=== PATIENT | male | born 1995 | race Caucasian/White ===

== ENCOUNTER 2021-09-23 13:08 | Emergency (ER) | payer OTHER, SELFPAY ==
[2021-09-23 13:13] VITALS: BP 159/95; PULSE 98; RESP 18; TEMP 36.8; O2SAT 99
--- NOTE | 2021-09-23 13:53 | ED.HEATRA ---
HPI - Head Injury General Chief complaint: Head Injury Stated complaint: concussion after playing hockey Time Seen by Provider: 09/23/21 13:40 Source: patient History of Present Illness HPI Narrative: Patient presents with a headache. He was playing hockey tripped fell and struck the back of his head on concrete reports he went black for a second had diffuse body paresthesias for a brief period of time then recovered. Now he feels a little lightheaded and has a mild headache. He wanted to monitor symptoms at home but a significant other convinced him to come to the ER for evaluation. The event occurred approximately 1 to 2 hours prior to ER evaluation. Denies any focal numbness or weakness denies any changes in vision denies any neck pain. Related Data Home Medications Medication Instructions Recorded Confirmed No Home Medications 09/23/21 09/23/21 Allergies Allergy/AdvReac Type Severity Reaction Status Date / Time No Known Allergies Allergy Verified 09/23/21 13:15 Review of Systems Review of Systems: CONSTITUTIONAL: Denies fever, chills, or sweats. EYES: Denies visual changes, redness, or discharge. ENT: Denies rhinorrhea, congestion, sore throat, or otalgia. CARDIOVASCULAR: Denies chest pain, palpitations, or edema. RESPIRATORY: Denies cough or dyspnea. GASTROINTESTINAL: Denies abdominal pain, nausea, vomiting, or diarrhea. GENITOURINARY: Denies dysuria or hematuria. SKIN: Denies rash or itching. MUSCULOSKELETAL: Denies back pain, joint pain, or myalgia. NEUROLOGIC: Denies numbness, dizziness, or weakness. PSYCHIATRIC: Denies anxiety or depression. All systems reviewed & are unremarkable except as noted in HPI and below PMFSH Past Medical History Medical History (Updated 09/23/21 @ 13:58 by Serge Oseguera MD) Patient denies significant medical history Exam Narrative: GENERAL: Well-appearing, well-nourished, and in no acute distress. HEAD: Normocephalic, abrasion noted to the occiput there is mild surrounding erythema no active bleeding no crepitus EYES: PERRLA and EOMI. ENT: Nares clear, no rhinorrhea or epistaxis. Mucous membranes moist. NECK: Supple. No masses. No JVD EXTREMITIES: Normal range of motion. No edema. SKIN: Warm, dry, no rash. NEURO: Cranial nerves II through XII are intact patient is 5 out of 5 strength in all extremities sensation intact to light touch in all extremities alert and oriented x3. PSYCH: Normal mood and affect. Course Vital Signs Vital signs: Vital Signs Temperature 36.8 C 09/23/21 13:13 Pulse Rate 98 09/23/21 13:13 Respiratory Rate 18 09/23/21 13:13 Blood Pressure 159/95 H 09/23/21 13:13 Pulse Oximetry 99 09/23/21 13:13 Temperature 36.8 C 09/23/21 13:13 Pulse Rate 98 09/23/21 13:13 Respiratory Rate 18 09/23/21 13:13 Blood Pressure 159/95 H 09/23/21 13:13 Pulse Oximetry 99 09/23/21 13:13 MDM - Head Injury MDM Narrative Medical decision making narrative: H&P as above, vss, pt looks clinically well, exam without focal neurological compromise, labs/img considered, symptomatic relief available as needed, on reevaluation pt continues to looks clinically well. Patient offered CT however likely to have low clinical utility patient a score of [address] rule suspect concussion, dns intracranial hemorrhage, fracture, major neurovascular compromise. plan to tx/monitor as op w/ pcm f/u findings/plan discussed with pt, pt agree/comfortable with plan, return precautions given Discharge Plan Discharge Clinical Impression: Abrasion Closed head injury Qualifiers: Encounter type: initial encounter Qualified Code(s): S09.90XA - Unspecified injury of head, initial encounter Patient Disposition: Home, Self-Care Condition: Improved Instructions: Antibiotic Form, Concussion (ED), Post Concussion Syndrome (ED) Additional Instructions: Please return if your symptoms worsen or fail to improve. If you develop a fever, can
== END 2021-09-23 14:13 | disposition home or self-care (01) ==
LOC: ANHED 14:07
PROVIDERS: Emergency Provider Emergency Medicine
DX: S06.9X1A Unspecified intracranial injury with loss of consciousness of 30 minutes or less, initial encounter (principal); W01.0XXA Fall on same level from slipping, tripping and stumbling without subsequent striking against object, initial encounter; Y93.22 Activity, ice hockey
CPT/HCPCS: 99283

== ENCOUNTER 2022-09-14 14:02 | Emergency (ER) | payer OTHER, SELFPAY ==
--- NOTE | 2022-09-14 14:04 | ED.EAR ---
HPI - Ear Problem General Chief complaint: Ear Stated complaint: lt ear pain/clogged Time Seen by Provider: 09/14/22 14:05 Source: patient Mode of arrival: ambulatory Limitations: no limitations History of Present Illness HPI Narrative: Mr. Valadez is a 27-year-old male patient presenting to the clinic today with complaints of left ear discomfort/clogged feeling. He reports his girlfriend tried to clean out his ear yesterday with a Q-tip and now he is having discomfort and ringing in the left ear. Related Data Home Medications Medication Instructions Recorded Confirmed No Home Medications 09/23/21 09/23/21 Allergies Allergy/AdvReac Type Severity Reaction Status Date / Time No Known Allergies Allergy Verified 09/14/22 14:08 Review of Systems Review of Systems: Pertinent positives per HPI. Patient denies any fever, chills, rash, headache, visual changes, dizziness, cough, runny nose, sore throat, shortness of breath, chest pain, palpitations, nausea, vomiting, diarrhea, constipation, abdominal pain, or any urinary issues. [facility] Past Medical History Medical History Patient denies significant medical history Comments At the time of my signature, I reviewed and agree with the nursing past medical, surgical, social, and family history. There is no relevant family history pertinent to the patient complaint. Exam Narrative: General: Well-developed, well nourished, in no apparent distress Head: Normocephalic, atraumatic Eyes: Pupils equally round and reactive to light bilaterally, EOM intact, sclera and conjunctive clear, no discharge, lids normal Ears: Bilateral cerumen impaction, irrigation was performed and ear wax was removed successfully, TMs intact and clear, ear canals clear, no drainage, grossly hearing normal. Nose: Nares patent, no discharge, no inflammation, no sinus tenderness. Mouth: Oropharynx without lesions or masses, good dentition, MMM. Neck: Supple, trachea midline, no enlargement of anterior or posterior cervical nodes, no thyroid masses or goiter palpable. Cardio: Regular rate and rhythm, s1 and s2 normal, no murmur appreciated. Resp: Clear to auscultation bilaterally anteriorly and posteriorly, no rhonchi, rales, wheezing or rubs Course Course Emergency Course: Portions of this record may have been created with voice recognition software. Level of Care: Express Care Visit Vital Signs Vital signs: Vital Signs Temperature 36.3 C L 09/14/22 14:06 Pulse Rate 68 09/14/22 14:06 Respiratory Rate 16 09/14/22 14:06 Blood Pressure 139/89 09/14/22 14:06 Pulse Oximetry 100 09/14/22 14:06 Temperature 36.3 C L 09/14/22 14:08 Pulse Rate 68 09/14/22 14:08 Respiratory Rate 16 09/14/22 14:08 Blood Pressure 139/89 09/14/22 14:08 Pulse Oximetry 100 09/14/22 14:08 Vital signs reviewed Procedures Ear Wax Removal Both Ears: Ear Wax Removal Date: 09/14/22 TM Examination: TM(s) intact, normal appearance Ear Canal Exam: atraumatic Patient Tolerated Procedure: well and no complications Complications: no problems Technique: ear canal irrigated Additional Comments: Verbal consent obtained for ear irrigation. Risk and benefits explained and patient voiced understanding. Ear irrigation performed using an elephant ear and spray water bottle. Mixture of 1/2 peroxide 1/2 water used to irrigate bilateral ear canals. Cerumen impaction cleared and TM visualized without redness. Grossly hearing normal. Patient tolerated procedure well Medical Decision Making MDM Narrative Medical decision making narrative: At the time of visit patient is resting comfortably in the exam table. Patient has bilateral cerumen impaction. Ear irrigation was performed in the clinic today and was successful. Patient tolerated procedure very well. Supportive measures were discussed with
[2022-09-14 14:06] VITALS: BP 139/89; PULSE 68; RESP 16; TEMP 36.3; O2SAT 100
[2022-09-14 14:08] VITALS: BP 139/89; PULSE 68; RESP 16; TEMP 36.3; O2SAT 100
== END 2022-09-14 14:27 | disposition home or self-care (01) ==
PROVIDERS: Emergency Provider Nurse Practitioner Family
DX: H61.23 Impacted cerumen, bilateral (principal)
CPT/HCPCS: 69209; 99212; G0463

== ENCOUNTER 2023-04-17 13:00 | Emergency (ER) | payer OTHER, SELFPAY ==
[2023-04-17 13:10] VITALS: BP 156/97; PULSE 103; RESP 16; TEMP 36.6; O2SAT 100
--- NOTE | 2023-04-17 13:13 | ED.NAVMDI ---
HPI - Nausea/Vomiting/Diarrhea General Chief complaint: Nausea/Vomiting/Diarrhea Stated complaint: Nausea Source: patient and RN notes reviewed Mode of arrival: ambulatory Limitations: no limitations History of Present Illness HPI Narrative: Patient is a 27-year-old male who presents to the [facility] with complaints of epigastric pain. Patient states that his epigastric pain has been present intermittently for the past 2 weeks. States that pain worsens after eating. Patient states that he did have 1 episode of nausea with emesis today due to the epigastric pain after eating. Patient states that today was the only time an episode of emesis. He denies recent fever. Denies diarrhea. Denies chest pain or shortness of breath. Patient states that he has tried Tums at home without relief. He states that he looked into taking an antacid but was told to see a provider before he did this. Related Data Allergies Allergy/AdvReac Type Severity Reaction Status Date / Time No Known Allergies Allergy Verified 04/17/23 13:11 Review of Systems Review of Systems: CONSTITUTIONAL: Denies fever, chills, or sweats. EYES: Denies visual changes, redness, or discharge. ENT: Denies otalgia and sore throat CARDIOVASCULAR: Denies chest pain, palpitations, or edema. RESPIRATORY: Denies cough or dyspnea. GASTROINTESTINAL: Reports epigastric pain, nausea, vomiting. Denies diarrhea. GENITOURINARY: Denies dysuria or hematuria. SKIN: Denies rash or itching. MUSCULOSKELETAL: Denies back pain, joint pain, or myalgia. NEUROLOGIC: Denies headache, numbness, or weakness. Pertinent positives per HPI. [facility] Past Medical History Medical History Patient denies significant medical history Comments At the time of my signature, I reviewed and agree with the nursing past medical, surgical, social, and family history. There is no relevant family history pertinent to the patient complaint. Exam Narrative: GENERAL: This is a well-nourished, well-developed patient, in no apparent distress. HEAD: normocephalic, atraumatic. EYES: Sclera clear/white. Vision is grossly intact. EARS: External ears normal. Hearing grossly intact. NOSE: External nose normal with no obvious nasal discharge, nares without redness, no rhinorrhea. THROAT: Mucous membranes moist, posterior pharynx clear. NECK: Neck supple, non-tender without lymphadenopathy, masses or thyromegaly. CARDIOVASCULAR: Regular rate and rhythm without murmurs, gallops, or rubs. RESPIRATORY: Clear to auscultation. Breath sounds equal bilaterally. No wheezes, rales, or rhonchi. GASTROINTESTINAL: Abdomen soft, non-tender, nondistended. Bowel sounds are active. No hepato-splenomegaly, or palpable masses. No guarding. SKIN: warm, intact with no suspicious lesions or rash, good texture and turgor. NEURO: awake, alert, and oriented to person, place and time. There were no obvious focal neurologic abnormalities. Course Course Level of Care: Express Care Visit Vital Signs Vital signs: Vital Signs Temperature 98 F 04/17/23 13:10 Pulse Rate 103 H 04/17/23 13:10 Respiratory Rate 16 04/17/23 13:10 Blood Pressure 156/97 H 04/17/23 13:10 Pulse Oximetry 100 04/17/23 13:10 Temperature 98 F 04/17/23 13:10 Pulse Rate 103 H 04/17/23 13:10 Respiratory Rate 16 04/17/23 13:10 Blood Pressure 156/97 H 04/17/23 13:10 Pulse Oximetry 100 04/17/23 13:10 Reviewed MDM - Nausea/Vomiting/Diarrhea MDM Narrative Medical decision making narrative: Take medication as prescribed. Follow-up with primary care physician. If pain persists, you may benefit from follow-up with GI specialist. Differential Diagnosis Differential diagnosis: Likely food poisoning, gastroenteritis and other (acid reflux, indigestion, GERD) Critical Care Time Critical Care Time Critical Care Time: No Discharge Plan Discharge Clinical Impression: GERD ([place]
== END 2023-04-17 13:23 | disposition home or self-care (01) ==
PROVIDERS: Emergency Provider Nurse Practitioner
DX: K21.9 Gastro-esophageal reflux disease without esophagitis (principal)
CPT/HCPCS: 99213; G0463

== ENCOUNTER 2023-06-11 15:02 | Emergency (ER) | payer OTHER, SELFPAY ==
[2023-06-11 15:08] VITALS: BP 156/91; PULSE 79; RESP 16; TEMP 37.1; O2SAT 100
--- NOTE | 2023-06-11 15:20 | ED.EAR ---
HPI - Ear Problem General Chief complaint: Ear Stated complaint: Earache Source: patient Mode of arrival: ambulatory Limitations: no limitations History of Present Illness HPI Narrative: 27-year-old male presented for complaint of bilateral ear pain with ringing worse on the left than right, decreased hearing on the right. Also with sinus congestion and pressure, headache, sore throat. Denies shortness of breath, wheezing, nausea, vomiting, diarrhea, fevers or chills. He used [id number] ear drops without relief. MD Complaint: ear pain Related Data Allergies Allergy/AdvReac Type Severity Reaction Status Date / Time No Known Allergies Allergy Verified 06/11/23 15:12 Review of Systems Review of Systems: CONSTITUTIONAL: Denies malaise, chills, or fever. EYES: Denies visual changes, redness, or discharge. ENT: reports rhinorrhea, congestion, sinus pain, sore throat, ear pain CARDIOVASCULAR: Denies chest pain, palpitations, or edema. RESPIRATORY: Denies cough or dyspnea. GASTROINTESTINAL: Denies abdominal pain, nausea, vomiting, diarrhea SKIN: Denies rash or itching. MUSCULOSKELETAL: Denies myalgia. NEUROLOGIC: Denies headache. All systems reviewed & are unremarkable except as noted in HPI and below PMFSH Past Medical History Medical History Patient denies significant medical history Comments At time of signature, agree with nursing past medical, surgical, social and family history. There is no relevant family history pertinent to the presenting complaint Exam Narrative: GENERAL: Well-appearing EYES: conjunctivae clear ENT: Nares clear. Mucous membranes moist. TMs erythematous with dull light reflex bilaterally; excess cerumen in bilateral canals. no tragal tenderness. Oropharynx erythematous without lesions. Tonsils enlarged 2+ and without exudate, no drooling, no hoarseness, no trismus, uvula midline. NECK: Supple. No lymphadenopathy CHEST: Clear to auscultation, breath sounds equal. No wheezing, rhonchi, rales, or stridor. No respiratory distress, speaks in full sentences. HEART: Regular rate and rhythm. No murmur heard. SKIN: Warm, dry, no rash. NEURO: Alert and oriented x3. PSYCH: Normal mood and affect Course Course Emergency Course: Patient is aware of diagnosis, understands and agrees to treatment plan. Anticipatory guidance given. Patient agrees to follow-up as directed and is aware of reasons to seek care at the emergency department. Portions of this record may have been created with voice recognition software Level of Care: Express Care Visit Vital Signs Vital signs: Vital Signs Temperature 98.8 F 06/11/23 15:08 Pulse Rate 79 06/11/23 15:08 Respiratory Rate 16 06/11/23 15:08 Blood Pressure 156/91 H 06/11/23 15:08 Pulse Oximetry 100 06/11/23 15:08 Temperature 98.8 F 06/11/23 15:08 Pulse Rate 79 06/11/23 15:08 Respiratory Rate 16 06/11/23 15:08 Blood Pressure 156/91 H 06/11/23 15:08 Pulse Oximetry 100 06/11/23 15:08 Oxygen Delivery Room Air 06/11/23 15:09 Reviewed Medical Decision Making MDM Narrative Medical decision making narrative: Negative strep, results reviewed with patient. Will send antibiotic to cover URI. advised supportive measures and signs/symptoms to go to the ER. Patient is appropriate for outpatient treatment and follow-up. Differential Diagnosis Differential Diagnosis: Coronavirus, strep pharyngitis, allergic rhinitis, upper respiratory tract infection, sinusitis, rhinosinusitis, nasopharyngitis, viral pharyngitis, otitis media, otitis externa, eustachian tube dysfunction, foreign body, cerumen impaction. Vital Signs Vital Signs: Vital Signs Temperature 98.8 F 06/11/23 15:08 Pulse Rate 79 06/11/23 15:08 Respiratory Rate 16 06/11/23 15:08 Blood Pressure 156/91 H 06/11/23 15:08 Pulse Oximetry 100 06/11/23 15:08 Temperature 98.8 F 06/11/23
== END 2023-06-11 15:30 | disposition home or self-care (01) ==
PROVIDERS: Emergency Provider Nurse Practitioner Family
DX: J06.9 Acute upper respiratory infection, unspecified (principal)
CPT/HCPCS: 87081; 87880; 99213; G0463

== ENCOUNTER 2024-02-08 13:35 | Emergency (ER) | payer OTHER, SELFPAY ==
[2024-02-08] VITALS (11 sets, daily range): BP systolic 122–149; BP diastolic 74–102; PULSE 71–99; RESP 15–20; TEMP 36.6; O2SAT 96–99
--- NOTE | ~2024-02-08 | XR_ITS ---
EXAMINATION: XR chest 2V Exam Date/Time: 02/08/2024 14:10 CDT HISTORY: cp FRONTAL WALL WITH SOB Comparison: None. RESULT: Lines, tubes, and devices: None. Lungs and pleura: Clear. Cardiomediastinal silhouette: Normal. Other: No acute osseous or upper abdominal finding. IMPRESSION: No acute cardiopulmonary process. Reviewed, dictated and finalized at location K.
--- NOTE | 2024-02-08 13:41 | ECG_ITS ---
Test Date: 2024-02-08 13:41:05 Measurements Intervals [place] Rate: 98 P: 63 OK: 153 QRS: 17 QRSD: 89 T: 39 QT: 326 QTc: 416 Interpretive Statements SINUS RHYTHM NORMAL ELECTROCARDIOGRAM No previous ECG available for comparison Electronically Signed On 02-10-2024 07:10:25 CDT by Alon Garcia M.D.
--- NOTE | 2024-02-08 14:08 | ED.CHESTPAIN ---
HPI - Chest Pain General Chief Complaint: Chest Pain Stated Complaint: chest pressure-SOB Time Seen by Provider: 02/08/24 14:08 Focused HPI: This is a 28-year-old male that presents to the emergency department for substernal chest pain. Ongoing over the last week. Reports shortness of breath with exertion. Denies fever, cough, lower extremity edema. GENERAL: Well-appearing, well-nourished, and in no acute distress. HEAD: Normocephalic, atraumatic. CHEST: Clear to auscultation. ?No respiratory distress. HEART: Regular rate and rhythm.? NEURO: ?Alert and oriented x3. Patient screened in triage and initial orders placed.? ?Additional care and disposition to be based upon?diagnostic testing and treatment. Related Data Allergies Allergy/AdvReac Type Severity Reaction Status Date / Time nut - unspecified Allergy Swelling Verified 02/08/24 14:03 of Lip/Tongue/Throat Review of Systems Review of Systems: CONSTITUTIONAL: Denies fever CARDIOVASCULAR: Reports chest pain. Denies palpitations, or edema. RESPIRATORY: Reports dyspnea. Denies cough All systems reviewed & are unremarkable except as noted in HPI and below PMFSH Past Medical History Medical History Patient denies significant medical history Social History Social History (Updated 02/08/24 @ 14:43 by Charmaine Frye PA-C) Smoking status: Current every day smoker Exam Narrative: GENERAL: Well-appearing, well-nourished, and in no acute distress. HEAD: Normocephalic, atraumatic. EYES: EOMI. NECK: Supple. No JVD CHEST: Clear to auscultation. No respiratory distress. No wheezes rales or rhonchi HEART: Regular rate and rhythm. No murmur heard. Normal peripheral pulses. EXTREMITIES: Normal range of motion. No edema. SKIN: Warm, dry, no rash. NEURO: No focal deficits. Alert and oriented x3. PSYCH: Normal mood and affect Course Course Emergency Course: patient updated on workup and agrees with plan of care Vital Signs Vital signs: Vital Signs Temperature 97.8 F 02/08/24 13:58 Pulse Rate 99 02/08/24 13:58 Respiratory Rate 18 02/08/24 13:58 Blood Pressure 149/89 H 02/08/24 13:58 Pulse Oximetry 99 02/08/24 13:58 Oxygen Delivery Room Air 02/08/24 13:58 Temperature 97.8 F 02/08/24 13:58 Pulse Rate 71 02/08/24 17:00 Respiratory Rate 20 02/08/24 15:50 Blood Pressure 135/102 H 02/08/24 15:50 Pulse Oximetry 99 02/08/24 17:00 Oxygen Delivery Room Air 02/08/24 15:00 MDM - Chest Pain MDM Narrative Medical decision making narrative: Patient presents to the emergency department for substernal chest discomfort. Ongoing over the last week. Reports some associated shortness of breath. He is afebrile and nontoxic appearing. His vitals are stable. CBC metabolic panel without concerning findings. EKG without concerning changes in baseline and 3 hour troponin are negative. Patient reports relief with Toradol. His heart score is 1. D-dimer is not elevated. Chest x-ray without acute cardiopulmonary abnormality. patient updated on workup and agrees with plan of care. Instructed follow-up with primary provider for further care. He was given warnings to return to the ER Differential Diagnosis Differential diagnosis: Likely stable angina, atypical chest pain, costochondritis and other (pneumonia, PE, GERD) Lab Data Attestation: I reviewed the patient's lab results. 02/08/24 14:23 02/08/24 14:23 Labs: Lab Results 02/08/24 02/08/24 02/08/24 Range/Units 14:23 14:23 16:58 WBC 10.2 H (4.5-10.0) K/mm3 RBC 5.27 (4.6-6.20) M/mm3 Hgb 16.1 (14.0-18.0) g/dL Hct 46.8 (42.0-52.0) % MCV 88.8 (80-100) fl MCH 30.6 (26-34) pg MCHC 34.4 (32-36) g/dl RDW 12.9 (11.5-14.5) % Plt Count 342 (150-375) k/mm3 MPV 9.5 (7.4-10.4) fl Immature Gran % (Auto) 0.3 (0-0.5) % Neut % (Auto)
[2024-02-08 14:29] LABS: Basophils Absolute Auto 0.1 K/mm3 (0.0-0.1); Basophils Percent Auto 0.5 % (0.2-1.2); Eosinophils Absolute Auto 0.1 K/mm3 (0-0.3); Eosinophils Percent Auto 1.3 % (0-4.4); Hematocrit 46.8 % (42.0-52.0); Hemoglobin 16.1 g/dL (14.0-18.0); Immature Granulocyte Absolute 0.03 K/mm3 (0.00-0.031); Immature Granulocyte Percent A 0.3 % (0-0.5); Lymphocytes Percent Auto 29.4 % (18.3-44.2); Mean Corpuscular HGB Conc 34.4 g/dl (32-36); Mean Corpuscular Hemoglobin 30.6 pg (26-34); Mean Corpuscular Volume 88.8 fl (80-100); Mean Platelet Volume 9.5 fl (7.4-10.4); Monocytes Absolute Auto 0.5 K/mm3 (0.1-0.6); Monocytes Percent Auto 5.2 % (2.6-8.5); Neutrophils Absolute Auto 6.5 K/mm3 (1.3-6.7); Neutrophils Percent Auto 63.3 % (45.5-73.1); Platelet Count Result 342 k/mm3 (150-375); Red Blood Count 5.27 M/mm3 (4.6-6.20); Red Cell Distribution Width 12.9 % (11.5-14.5); White Blood Count 10.2 K/mm3 (4.5-10.0)
[2024-02-08 14:40] LABS: Alanine Aminotransferase 52 U/L (6-50); Albumin Level 5.2 g/dL (3.5-5.1); Alkaline Phosphatase 122 U/L (38-126); Anion Gap 16 mmol/L (4-12); Aspartate Amino Transferase 41 U/L (17-59); Bilirubin,Total 1.1 mg/dL (0.2-1.3); Blood Urea Nitrogen 14 mg/dL (9-20); Calcium 10.1 mg/dL (8.4-10.2); Carbon Dioxide 22 mmol/L (22-30); Chloride 102 mmol/L (98-107); Estimated CRCL calculation 128 ml/min; Estimated Glomerular Filt Rate > 60; Glucose 95 mg/dL (65-110); Lipase 48 U/L (23-300); Potassium 3.8 mmol/L (3.4-5.0); Prothrombin Time 13.5 Seconds (11.1-14.7); Sodium 140 mmol/L (137-145)
[2024-02-08 14:41] LABS: Partial Thromboplastin Time 23.7 Seconds (22.3-36.8)
[2024-02-08 14:45] LABS: D Dimer < 0.27 ug/mL (<0.48)
[2024-02-08 14:52] LABS: Troponin I < 0.012 ng/mL (0.000-0.034)
[2024-02-08] MEDS: KETOROLAC 15 MG/ML VIAL (*BKC) IV PUSH (15:37)
[2024-02-08] MEDS: SODIUM CHLORIDE 0.9% IV 1,000 ML 999 ML IV CONT (15:37)
[2024-02-08] MEDS: IPRATROPIUM 0.5 MG/ALBUTEROL SULFATE 2.5 MG AMPUL.NEB 3 ML INHALATION (15:43)
[2024-02-08 15:50] LABS: NT Pro B Type Natriuretic Pept 26 pg/mL (19.9-100)
--- NOTE | 2024-02-08 16:19 | PC.NURSE ---
NO cardiac leads in the room. oil heat technician made aware of no leads.
[2024-02-08 17:32] LABS: Troponin I < 0.012 ng/mL (0.000-0.034)
== END 2024-02-08 18:22 | disposition home or self-care (01) ==
PROVIDERS: Emergency Medicine; Emergency Provider Physician Assistant; PCP Internal Medicine
DX: R07.9 Chest pain, unspecified (principal); F17.200 Nicotine dependence, unspecified, uncomplicated
CPT/HCPCS: 36415; 71046; 80053; 83690; 83880; 84484; 85025; 85380; 85610; 85730; 93005; 94640; 96361; 96374; 99284; J1885; J7030

== ENCOUNTER 2024-06-11 14:34 | Emergency (ER) | payer OTHER, SELFPAY ==
[2024-06-11 15:44] VITALS: BP 129/79; PULSE 91; RESP 16; TEMP 36.7; O2SAT 100
--- NOTE | 2024-06-11 17:25 | ED.URI ---
HPI - URI/Sore Throat General Chief Complaint: Upper Respiratory Infection Stated Complaint: Sinus Infection Symptoms Time Seen by Provider: 06/11/24 17:25 Source: patient, RN notes reviewed and old records reviewed Mode of arrival: ambulatory Limitations: no limitations History of Present Illness HPI Narrative: 28 year old male presents to [facility] care with complaints of cough and sore throat for 3 days with some fevers and feels weak, body aches, with some headache discomfort. Patient reports that he has been taking DayQuil and NyQuil for his symptoms. Patient reports that his ribs hurt for coughing so much. MD elicited complaint: cough and sore throat Onset (ago): day(s) (3) Severity: moderate Able to tolerate fluids by mouth: Yes Treatments prior to arrival: other (DayQuil and NyQuil) Related Data Allergies Allergy/AdvReac Type Severity Reaction Status Date / Time nut - unspecified Allergy Swelling Verified 02/08/24 14:03 of Lip/Tongue/Throat Review of Systems Review of Systems: CONSTITUTIONAL: Reports malaise, chills, sweats, or fever. EYES: Denies visual changes, redness, or discharge. ENT: Reports rhinorrhea, congestion,no sinus pain,no otalgia and positive sore throat. CARDIOVASCULAR: Denies chest pain, palpitations, or edema.states ribs sore from coughing RESPIRATORY: Reports cough.? Denies dyspnea. GASTROINTESTINAL: Denies abdominal pain, nausea, vomiting, diarrhea SKIN: Denies rash or itching. MUSCULOSKELETAL: reports myalgia. NEUROLOGIC: Reports headache. All systems reviewed & are unremarkable except as noted in HPI and below PMFSH Past Medical History Medical History Patient denies significant medical history Social History Social History Smoking status: Current every day smoker Comments At time of signature, agree with nursing past medical, surgical, social and family history. There is no relevant family history pertinent to the presenting complaint Exam Narrative: GENERAL: Well-appearing, well-nourished, and in no acute distress. HEAD: Normocephalic EYES: PERRLA, conjunctivae clear ENT: Nares clear, turbinates edematous and erythematous, clear discharge. Mucous membranes moist. TM pearly cruz with dull light reflex bilaterally; no tragal tenderness. Oropharynx erythematous without lesions. Tonsils not enlarged and without exudate, no drooling, no hoarseness, no trismus, uvula midline.post nasal drainage NECK: Supple. No lymphadenopathy CHEST: Clear to auscultation, breath sounds equal. No wheezing, rhonchi, rales, or stridor. No respiratory distress, speaks in full sentences.persistent coughing SAO2 100% on room air HEART: Regular rate and rhythm. No murmur heard. SKIN: Warm, dry, no rash. NEURO: Alert and oriented x3. PSYCH: Normal mood and affect Course Course Emergency Course: Patient is aware of diagnosis, understands and agrees to treatment plan.? Anticipatory guidance given.? Patient agrees to follow-up as directed and is aware of reasons to seek care at the emergency department. Portions of this record may have been created with voice recognition software Level of Care: Express Care Visit Vital Signs Vital signs: Vital Signs Temperature 36.7 C 06/11/24 15:44 Pulse Rate 91 06/11/24 15:44 Respiratory Rate 16 06/11/24 15:44 Blood Pressure 129/79 06/11/24 15:44 Pulse Oximetry 100 06/11/24 15:44 Temperature 36.7 C 06/11/24 15:44 Pulse Rate 91 06/11/24 15:44 Respiratory Rate 16 06/11/24 15:44 Blood Pressure 129/79 06/11/24 15:44 Pulse Oximetry 100 06/11/24 15:44 Reviewed MDM - URI/Sore Throat MDM Narrative Medical decision making narrative: Differential diagnosis considered: Xiao virus, strep pharyngitis, allergic rhinitis, upper respiratory tract infection, sinusitis, rhinosinusitis, nasopharyngitis. viral pharyngitis, otitis media, otitis externa, pneumonia, bronchitis, viral cough syndrome, viral syndrome, and influenza.? Exam findings show no acute concerns or changes; patient is non-toxic appearing and is in no distress.? Patient is appropriate for outpatient treatment and follow-up. Differential Diagnosis Differential diagnosis: Likely upper respiratory infection, sinusitis, influenza, pharyngitis and other (strep pharyngitis, COVID) Medical Records Attestation: I reviewed the patient's medical records. Lab Data Attestation: I reviewed the patient's lab results. Lab results narrative: strep screen negative, Influenza A negative, Influenza B negative, COVID antigen positive Labs: Lab Results 06/11/24 Range/Units 15:49 POC Influenza A Ag Negative (Negative) POC Influenza B Ag Negative (Negative) POC SARS CoV-2 Ag Positive (Negative) POC Grp A Strep Screen Negative (Negative) Critical Care Time Critical Care Time Critical Care Time: No Discharge Plan Discharge Clinical Impression: COVID-19 Patient Disposition: Home, Self-Care Condition: Stable Instructions: Antibiotic Form, How to Recover from COVID-19 at Home (ED) Additional Instructions: Increase fluids especially juices and water [id number] cough and cold medicine of your choice for your symptoms Tylenol or ibuprofen for any fever pain Zyrtec Claritin or Magali daily include plain Sudafed in a.m. Steroids as directed--take with food heat to the face 20-30 minutes 4-6 times a day for pain Salt water gargles, throat lozenges or throat sprays as desired must quarantine COVID-19 DISCHARGE The following recommendations have been made by the CDC and local Health Departments, regarding COVID-19: Those individuals with mild cases of COVID-19 can generally be discontinued from isolation, 5 days AFTER the onset of symptoms AND the resolution of fever for 24hrs (without the use of fever-reducing medications) Those individuals who were asymptomatic, and tested positive, are discontinued from isolation 10 days AFTER their first positive COVID-19 test Those individuals with SEVERE to CRITICAL illness or immunocompromised diseases may require up to 20 days of home isolation or hospitalization Majority of mild to moderate cases can be treated at home, without hospitalization or prescription medications You do not need a negative test result to return to work/school, assuming the above recommendations have been met and you are not symptomatic. At this time, return to work/school notes will not be provided. Guidelines from the local Health Department, CDC, and workplace are expected to be followed. All individuals in the household need to remained quarantined for up to 14 days if asymptomatic OR 10 days after the start of symptoms. Everyone in the home DOES NOT require testing, they are presumed positive and should quarantine as directed. Treating symptoms for mild to moderate cases may include: Tylenol, Flonase/nasal spray, OTC cold/flu medications recommended from your provider or any necessary prescription medications provided at your visit or from your PCP IF YOU TESTED NEGATIVE If you are symptomatic with reason to believe you have COVID-19, there is a high possibility your rapid test may not have detected the virus. Rapid testing is dependent on timing and viral load and may have a false-negative reading You should follow appropriate guidelines regarding quarantine, hand washing, mask wearing, and social distancing You may be sent for PCR testing as an outpatient to the [facility] site Common Adult Symptoms: Fever/chills Cough Shortness of breath Fatigue, muscle aches Headache Loss of taste/smell Sore throat, congestion, runny nose GI symptoms (nausea, vomiting, diarrhea) Common Pediatric Symptoms Cough Fever GI symptoms (diarrhea, upset stomach, nausea, vomiting) Symptoms may differ in severity however, most cases do not require hospitalization. WHEN TO SEEK ER EVALUATION/TREATMENT Severe/persistent shortness of breath or difficulty breathing Elevated, persistent fevers without resolution with fever-reducing medications Chest pain Extreme fatigue/lethargy Complications of pre-existing disease Patient Language: French Prescriptions: New prednisone 50 mg tablet 50 mg PO DAILY Qty: 5 0RF Rx Instructions: take in am with food No Action albuterol sulfate 90 mcg/actuation HFA aerosol inhaler 2 puff inhalation QID PRN (Reason: shortness of breath or wheezing) Qty: 8.5 0RF Follow-up/Referrals: Macey,MD Dominga [Primary Care Provider] - Time of Disposition: 17:37 Quality [place] Coma Scale Eyes: Open Verbal: Oriented and Alert Motor: Follows Commands [place] Coma Total Score: 15
[2024-06-11 17:37] LABS: EDCOVIDSCREEN Positive (Negative); EDINFLUASCREEN Negative (Negative); EDINFLUBSCREEN Negative (Negative); EDSTREPNEGPOS1 Negative (Negative)
== END 2024-06-11 17:41 | disposition home or self-care (01) ==
PROVIDERS: Emergency Provider Registered Nurse; PCP Internal Medicine
DX: U07.1 COVID-19 (principal)
CPT/HCPCS: 87081; 87426; 87804; 87880; 99213; G0463

== ENCOUNTER 2024-07-03 17:40 | Emergency (ER) | payer OTHER, SELFPAY ==
--- NOTE | ~2024-07-03 | XR_ITS ---
EXAMINATION: XR chest 2V Exam Date/Time: 07/03/2024 22:06 SECOND OFFICER HISTORY: cough, shortness of breath Comparison: 02/08/2024. RESULT: Lines, tubes, and devices: None. Lungs and pleura: Segmental lingular airspace disease. Cardiomediastinal silhouette: Stable. Other: No acute osseous or upper abdominal finding. IMPRESSION: Lingular pneumonia. Reviewed, dictated and finalized at location K. [place] OFFICER IMPRESSION: Lingular pneumonia.
[2024-07-03 17:44] VITALS: BP 152/77; PULSE 122; RESP 18; TEMP 37.4; O2SAT 95
[2024-07-03 19:11] VITALS: TEMP 36.9
[2024-07-03 20:26] VITALS: TEMP 36.7
[2024-07-03 21:09] LABS: Influenza A QL RT-PCR Negative (Negative); Influenza B QL RT-PCR Negative (Negative); RSV RNA, RT-PCR Negative (Negative); SARS-CoV-2 RNA PCR Negative (Negative)
[2024-07-03 22:18] VITALS: BP 142/77; PULSE 84; RESP 16; O2SAT 99
--- NOTE | 2024-07-03 22:18 | ED.FEVER ---
HPI - Fever General Chief Complaint: Fever Stated Complaint: fever Time Seen by Provider: 07/03/24 20:39 History of Present Illness HPI Narrative: Patient is a 28-year-old male who presents to the ER with complaints of a 3 day fever. He reports his symptoms include exhaustion, green mucus, sweats and chills, sore throat, cough, and T-max of 103.4?. Patient reports he has intermittently been short of breath and experienced some wheezing. His reports he has been ?out of it for the past couple days. Patient endorses a history of chest pain that he was evaluated here for in January, otherwise he has no pertinent medical history. Patient denies chest pain, abdominal pain, back pain, urinary symptoms. Related Data Allergies Allergy/AdvReac Type Severity Reaction Status Date / Time nut - unspecified Allergy Swelling Verified 02/08/24 14:03 of Lip/Tongue/Throat Review of Systems Review of Systems: All systems reviewed & are unremarkable except as noted in HPI and below PMFSH Past Medical History Medical History Patient denies significant medical history Social History Social History Smoking status: Current every day smoker Exam Narrative: GENERAL: Ill appearing, obese, non-toxic, in no acute distress. HEAD: Normocephalic, atraumatic. NECK: Supple. No adenopathy, no masses. RESPIRATORY: Airway patent, respirations nonlabored. Clear to auscultation bilaterally, no rales, rhonchi, wheezing. + cough during exam CARDIOVASCULAR: Regular rate and rhythm without murmurs, rubs, or gallops. Peripheral pulses 2+ and equal bilaterally. ABDOMINAL: Soft, nontender, nondistended, no hepatosplenomegaly. Normoactive BS. MUSCULOSKELETAL: Moves all extremities. Strength/ROM intact without gross deformities. SKIN: Warm, dry, normal color. No rashes. NEURO: A&O X3. Speech clear. Cranial nerves II-XII grossly intact. Steady gait. No ataxic movements. PSYCHIATRIC: Appropriate mood and affect. Normal interaction. Course Vital Signs Vital signs: Vital Signs Temperature 37.4 C 07/03/24 17:44 Pulse Rate 122 H 07/03/24 17:44 Respiratory Rate 18 07/03/24 17:44 Blood Pressure 152/77 H 07/03/24 17:44 Pulse Oximetry 95 07/03/24 17:44 Temperature 36.7 C 07/03/24 20:26 Pulse Rate 84 07/03/24 22:18 Respiratory Rate 16 07/03/24 23:32 Blood Pressure 142/77 H 07/03/24 22:18 Pulse Oximetry 99 07/03/24 22:18 MDM - Fever MDM Narrative Medical decision making narrative: Patient is a 28-year-old male who presents to the ER with complaints of a 3 day fever. He reports his symptoms include exhaustion, green mucus, sweats and chills, sore throat, cough, and T-max of 103.4?. Patient reports he has intermittently been short of breath and experienced some wheezing. His reports he has been ?out of it for the past couple days. Patient endorses a history of chest pain that he was evaluated here for in January, otherwise he has no pertinent medical history. Patient denies chest pain, abdominal pain, back pain, urinary symptoms. Labs Ordered: CBC, CMP, UA, COVID/flu/RSV swab Imaging Ordered: Chest x-ray Results: Patient's chest x-ray was suspicious for pneumonia in the left lower lobe. Patient's CBC indicated white blood cell count of 11.1. His CMP indicated a sodium of 136. Patient's urinalysis indicated protein 1+, trace ketones, 1+ bilirubin. Patient's COVID/influenza/RSV swab was negative. Diagnosis: Community acquired pneumonia Patient Education/Shared MDM: Results shared with patient. Patient will be given his 1st dose of oral antibiotics here in the ER. He will be discharged with an inhaler, antibiotics, Tessalon Perles, steroid. Patient and his verbalized understanding and are in agreement with plan. Vital signs stable at time of discharge. All questions answered. Differential Diagnosis Differential diagnosis: Likely fever of unknown origin, community acquired pneumonia, viral infection and influenza Lab Data Attestation: I reviewed the patient's lab results. 07/03/24 22:35 07/03/24 22:35 Labs: Lab Results 07/03/24 07/03/24 Range/Units 20:24 22:35 WBC 11.1 H (4.5-10.0) K/mm3 RBC 5.18 (4.6-6.20) M/mm3 Hgb 15.4 (14.0-18.0) g/dL Hct 45.9 (42.0-52.0) % MCV 88.6 (80-100) fl MCH 29.7 (26-34) pg MCHC 33.6 (32-36) g/dl RDW 13.2 (11.5-14.5) % Plt Count 279 (150-375) k/mm3 MPV 9.1 (7.4-10.4) fl Immature Gran % (Auto) 0.2 (0-0.5) % Neut % (Auto) 62.8 (45.5-73.1) % Lymph % (Auto) 28.0 (18.3-44.2) % [place] % (Auto) 8.2 (2.6-8.5) % Eos % (Auto) 0.3 (0-4.4) % Baso % (Auto) 0.5 (0.2-1.2) % Lymph # (Auto) 3.10 (0.9-3.2) K/mm3 [place] # (Auto) 0.9 H (0.1-0.6) K/mm3 Eos # (Auto) 0.0 (0-0.3) K/mm3 Baso # (Auto) 0.1 (0.0-0.1) K/mm3 Abs Immat Gran (auto) 0.02 (0.00-0.031) K/mm3 Absolute Neuts (auto) 7.0 H (1.3-6.7) K/mm3 Absolute Nucleated RBC 0.000 (0.0-0.012) K/mm3 Nucleated RBC % 0.0 (0.0-0.2) % Sodium 136 L (137-145) mmol/L Potassium 3.8 (3.4-5.0) mmol/L Chloride 100 (98-107) mmol/L Carbon Dioxide 27 (22-30) mmol/L Anion Gap 9 (4-12) mmol/L BUN 14 (9-20) mg/dL Creatinine 1.05 (0.7-1.3) mg/dL Estim Creat Clear Calc 134 ml/min Estimated GFR > 60 (59 - ) Glucose 100 (65-110) mg/dL Calcium 8.9 (8.4-10.2) mg/dL Total Bilirubin 1.3 (0.2-1.3) mg/dL AST 32 (17-59) U/L ALT 45 (6-50) U/L Alkaline Phosphatase 110 (38-126) U/L Total Protein 8.0 (6.3-8.2) g/dL Albumin 4.3 (3.5-5.1) g/dL Urine Color Dark yellow (Yellow) Urine Appearance Clear (Clear) Urine pH 5.5 (5.0-9.0) Ur Specific [place] 1.033 (1.001-1.035) Urine Protein 1+ H (Negative) mg/dL Urine Glucose (UA) Negative (Negative) mg/dL Urine Ketones Trace H (Negative) mg/dL Ur Blood (Man) Negative (Negative) Urine Nitrate Negative (Negative) Urine Bilirubin 1+ H (Negative) Urine Urobilinogen 1.0 (<2.0) mg/dL Add Ur Microanalysis Reviewed Leukocyte Esterase Rfl Negative (Negative) TERESA/UL Urine RBC 0-2 (0-2) /hpf Urine WBC 0-5 (0-3) /hpf Ur Squamous Epith Cells Few (Few) /hpf Urine Bacteria None seen /hpf Urine Casts 3-5 Urine Mucus Present /lpf Influenza A (RT-PCR) Negative (Negative) Influenza B (RT-PCR) Negative (Negative) RSV (RT-PCR) Negative (Negative) SARS-CoV-2 RNA (RT-PCR) Negative (Negative) Imaging Data Attestation: I personally reviewed and interpreted this imaging study as follows: My impression: Chest x-ray suspicious for pneumonia in left lower lobe. ECG Data EKG #1: Attestation: I personally reviewed and interpreted this ECG as follows: ECG completion date: 07/04/24 ECG completion time: 23:50 Prior ECG tracings: available for review EKG Interpretation: normal rate, sinus rhythm and no ectopy Discharge Plan Discharge Clinical Impression: Community acquired pneumonia Patient Disposition: Home, Self-Care Condition: Stable Instructions: Antibiotic Form, Bacterial Pneumonia (ED) Additional Instructions: Please return to the ER with an worsening symptoms. Follow-up with primary care provider in the next 2-3 days. Take all medications as prescribed. Patient Language: Latvian Prescriptions: New amoxicillin-pot clavulanate 875-125 mg tablet 1 tablet PO Q12H Qty: 20 0RF prednisone 20 mg tablet 20 mg PO BID Qty: 10 0RF doxycycline monohydrate 100 mg tablet 100 mg PO BID Qty: 14 0RF albuterol sulfate [Ventolin HFA] 90 mcg/actuation HFA aerosol inhaler 1 puff inhalation QID PRN (Reason: shortness of breath or wheezing) Qty: 8.5 0RF No Action prednisone 50 mg tablet 50 mg PO DAILY Qty: 5 0RF Rx Instructions: take in am with food albuterol sulfate 90 mcg/actuation HFA aerosol inhaler 2 puff inhalation QID PRN (Reason: shortness of breath or wheezing) Qty: 8.5 0RF Follow-up/Referrals: Macey,MD Dominga [Primary Care Provider] - Time of Disposition: 00:18
[2024-07-03] MEDS: SODIUM CHLORIDE 0.9% IV 1,000 ML 999 ML IV CONT (22:36)
[2024-07-03 22:44] LABS: Basophils Absolute Auto 0.1 K/mm3 (0.0-0.1); Basophils Percent Auto 0.5 % (0.2-1.2); Eosinophils Percent Auto 0.3 % (0-4.4); Hematocrit 45.9 % (42.0-52.0); Hemoglobin 15.4 g/dL (14.0-18.0); Immature Granulocyte Absolute 0.02 K/mm3 (0.00-0.031); Immature Granulocyte Percent A 0.2 % (0-0.5); Mean Corpuscular HGB Conc 33.6 g/dl (32-36); Mean Corpuscular Hemoglobin 29.7 pg (26-34); Mean Corpuscular Volume 88.6 fl (80-100); Mean Platelet Volume 9.1 fl (7.4-10.4); Monocytes Absolute Auto 0.9 K/mm3 (0.1-0.6); Monocytes Percent Auto 8.2 % (2.6-8.5); Neutrophils Percent Auto 62.8 % (45.5-73.1); Platelet Count Result 279 k/mm3 (150-375); Red Blood Count 5.18 M/mm3 (4.6-6.20); Red Cell Distribution Width 13.2 % (11.5-14.5); White Blood Count 11.1 K/mm3 (4.5-10.0)
[2024-07-03 22:52] LABS: Add Urine Microscopic? YES; Appearance Urine Clear (Clear); Bacteria Urine None Seen /hpf; Bilirubin Urine 1+ (Negative); Blood Urine Negative (Negative); Color Urine Dark Yellow (Yellow); Glucose Urine UA Negative (Negative); Ketones Urine Trace mg/dL (Negative); Leukocyte Esterase Ur Negative LEU/UL (Negative); Mucus Urine Present /lpf; Need Manual Microscopic Reviewed; Nitrate Urine Negative (Negative); Protein Urine 1+ mg/dL (Negative); RBC Urine 0-2 /hpf (0-2); Specific Grav Ur 1.033 (1.001-1.035); Squamous Epithelial Cell Urine Few /hpf (Few); WBC Urine 0-5 /hpf (0-3); pH Urine 5.5 (5.0-9.0)
[2024-07-03 22:54] LABS: Alanine Aminotransferase 45 U/L (6-50); Albumin Level 4.3 g/dL (3.5-5.1); Alkaline Phosphatase 110 U/L (38-126); Anion Gap 9 mmol/L (4-12); Aspartate Amino Transferase 32 U/L (17-59); Bilirubin,Total 1.3 mg/dL (0.2-1.3); Blood Urea Nitrogen 14 mg/dL (9-20); Calcium 8.9 mg/dL (8.4-10.2); Carbon Dioxide 27 mmol/L (22-30); Chloride 100 mmol/L (98-107); Estimated CRCL calculation 134 ml/min; Estimated Glomerular Filt Rate > 60; Glucose 100 mg/dL (65-110); Potassium 3.8 mmol/L (3.4-5.0); Sodium 136 mmol/L (137-145)
--- NOTE | 2024-07-03 23:00 | ECG_ITS ---
Test Date: 2024-07-03 23:50:49 Measurements Intervals [place] Rate: 79 P: 57 AK: 178 QRS: 52 QRSD: 88 T: 39 QT: 347 QTc: 400 Interpretive Statements SINUS RHYTHM Compared to ECG 02/08/2024 13:41:05 No significant changes Electronically Signed On 07-04-2024 10:04:13 OUTSIDE MACHINIST SUPERVISOR by Jay Dean M.D.
[2024-07-03 23:32] VITALS: RESP 16
[2024-07-04] MEDS: AMOXICILLIN/CLAVULANATE K 875-125 MG TAB 1 TABLET PO (00:30)
[2024-07-04] MEDS: DOXYCYCLINE HYCLATE 100 MG TABLET PO (00:30)
[2024-07-04 00:34] VITALS: BP 138/78; PULSE 87; RESP 17; O2SAT 97
--- OUTSIDE RECORDS SUMMARY | 2024-07-08 09:20 | XMS_ITS | Referral Summary ---
Author Organization [facility] Address [address] [place] [address] Care Team Providers Care Roof Panel Hanger Name Role Phone Arthur Franco MD Primary Care Provider [phone] Source Comments [facility],non-[facility] Affiliates and Associated Physician Practices is amultiple site organization consisting of ambulatory clinics and hospital sitesin [place], [place], [place] and [place]. This disclosure is being madepursuant to the Care Everywhere program and may not contain all information available regarding this patient. Last updated 18.[facility] Social History Tobacco Use Types Packs/Day Years Used Date Smoking Tobacco: Never Assessed Sex and Gender Information Value Date Recorded Sex Assigned at Not on file Gender Identity Not on file Sexual Orientation Not on file Plan of Treatment Not on file Care Teams Roof Panel Hanger Relationship Specialty Start Date End Date Arthur Franco MD [address] [place] [address] [facility] - General 05/02/20
--- OUTSIDE RECORDS SUMMARY | 2024-07-08 09:20 | XMS_ITS | Clinical Summary ---
Author Organization [facility] Address [address] [place] [address]. [place], [place] [address] [place] [address] Care Team Providers Care Wreath Machine Operator Name Role Phone Dominga Choudhury MD Primary Care Provider [phone] Allergies Active Allergy Reactions Criticality Noted Date Comments Peanut-Containing Drug Products Nausea and Vomiting 10/23/2023 Throat swelling Medications CPAP DEVICE, DME,Indications :LENNOX (obstructive sleep apnea) Use nightly when sleeping. Send to [facility]. ScheduleSoft Device 4 Active Additional Information Patient not taking.Reported on 07/07/2024 albuterol sulfate HFA 108 (90 Base) MCG/ACT inhaler INHALE 1 PUFF BY MOUTH FOUR TIMES DAILY NEEDED FOR SHORTNESS OF BREATH OR WHEEZING 5 Active doxycycline monohydrate (ADOXA) 100 MG tablet 5 Active predniSONE (DELTASONE) 20 MG tablet 5 Active amoxicillin-cla vulanate (AUGMENTIN) 875-125 MG tablet Take 1 tablet (875 mg total) by mouth every 12 (twelve) hours. 5 Active benzonatate (TESSALON) 200 MG capsuleIndicati ons:Pneumonia of both lungs due to infectious organism, unspecified part of lung Take 1 capsule (200 mg total) by mouth 3 (three) times daily as needed for Cough. 20 capsule 5 025 Active methylPREDNISol one, NAPOLEON, (MEDROL DOSEPAK) 4 MG tabletIndicatio ns:Viral syndrome Take as directed 1 each 4 025 Discontin ued(Alter juan jose therapy) Active Problems Problem Noted Date Diagnosed Date Viral syndrome 01/21/2024 Left groin pain 10/23/2023 Abnormal urine odor 10/23/2023 Encounters Date Type Department Care Team Description 07/07/2024 3:20 PM BRAND STRATEGIST Office Visit [facility] Medical Group Multispecialty Care - [address] [place] [address] Dominga Choudhury MD Physical (Pt has pneumonia ) 07/07/2024 Travel 07/03/2024 Scan [facility] SRV[facility] Scanned, Doc Med Group 06/11/2024 Scan [facility] Scanned, Doc Med Group Lab (SCAN) 06/11/2024 Scan [facility] INFO [facility] Scanned, Doc Med Group Lab (SCAN) from Last 3 Months Immunizations Name Administration Dates Next Due Dtap (Generic) 07/29/2000, 7,03/11/1996,01/01,1995 Fluzone 6 Months+ Quad (0.5 mL Prefilled Syringe) 07/04/2023 Hepatitis A (Generic) 01/16/2009,01/13/2008 Hepatitis B 06/04/1996,1995,1995 Hib (Generic) 12/10/1996, 6,01/02/1996,11/04 Influenza (Generic) 06/28/2012,05/03/2010 MMR (MMRII) 07/29/2000,08/30/1996 Meningococcal (Generic) 01/13/2008 Meningococcal (Menactra) 04/12/2014 PFIZER COVID-19 (ORIGINAL FO RMULATION, PURPLE CAP) mRNA, LNP-S, PF, 30 MCG/0.3 ML DOSE 12/26/2020,12/05/2020 Polio Opv (Generic) 07/29/2000, 7,01/02/1996,11/04 Tdap (Adacel) 07/04/2023 Tdap (Generic) 12/11/2005 Varicella (Varivax) 09/19/2006,08/30/1996 Family History Medical History Relation Comments Hypertension Mother Relation Status Comments Mother Social History Tobacco Use Types Packs/Day Years Used Date Smoking Tobacco: Every Day Cigarettes Passive Smoke Exposure: Never Smokeless Tobacco: Never Tobacco Cessation:Ready to Q uit: No; Counseling Given: Yes Comments:Patient smoked cigarettes from 2011 to 2019 1 PPD on average. Currently vapes. Alcohol Use Standard Drinks/Week Comments Yes 10 (1 standard drink = 0.6 oz pu re alcohol) AUDIT-C Answer Date Recorded Q1: How often do you have a drink containing alc ohol? 2-3 times a week 07/07/2024 Q2: How many drinks containi ng alcohol do you have on a typical day when you are drinking? 1 or 2 07/07/2024 Q3: How often do you have si x or more drinks on one occasion? Weekly 07/07/2024 PHQ-2 Answer Date Recorded Patient Health Questionnaire-2 Score 2 07/04/2023 Sex and Gender Information Value Date Recorded Sex Assigned at Not on file Legal Sex Male 4:46 PM CDT Gender Identity Not on file Sexual Orientation Not on file Last Filed Vital Signs Vital Sign Reading Time Taken Comments Blood Pressure 131/82 07/07/2024 3:13 PM BRAND STRATEGIST Pulse 82 07/07/2024 3:13 PM BRAND STRATEGIST Temperature 36.6 ??C (97.8 ??F) 07/07/2024 3:13 PM CS T Respiratory Rate 18 07/07/2024 3:13 PM BRAND STRATEGIST Oxygen Saturation 99% 07/07/2024 3:13 PM BRAND STRATEGIST Inhaled Oxygen Concentration - - Weight 135.4 kg (298 lb 6.4 oz) 07/07/2024 3:13 PM BRAND STRATEGIST Height 193 cm (6' 4 ) 07/07/2024 3:13 PM BRAND STRATEGIST Body Mass Index 36.32 07/07/2024 3:13 PM BRAND STRATEGIST Plan of Treatment Upcoming Encounters Date Type Department Care Team (Late st Contact Info) Description 07/21/2024 7:00 AM BRAND STRATEGIST Allied Health/Nurse Visit [facility] Medical Group Multispecialty Care - [place] [address] [address] [place] [address] Dominga Choudhury MD [address] [place] [address] Health Maintenance Due Date Last Done Comments Pneumococcal Vaccine: Pediatrics (0 to 5 Years) and At-Risk Patients (6 to 64 Years) (1 of 2 - PCV) 08/30/2001 COVID-19 Vaccine (3 - 2023- season) 2024 12/26/2020, 12/05/2020 Influenza Adult (#1) 2024 07/04/2023, 06/28/2012, 05/03/2010 PHQ-2 (Physician [place]) 07/04/2024 07/04/2023 Annual Physical 07/07/2025 07/07/2024, 07/04/2023 DTaP, Tdap and Td Vaccines (8 - Td or Tdap) 07/04/2033 07/04/2023, 12/11/2005, 07/29/2000, Additional history exists Hepatitis B Vaccines Completed 06/04/1996, 1995, 1995 Meningococcal Vaccine Completed 04/12/2014, 008 Hepatitis C Completed 07/04/2023 HPV Vaccines Aged Out No longer eligi ble based on patient's age to complete this topic Meningococcal B Vaccine Aged Out No l onger eligible based on patient's age to complete this topic RSV Immunizations Under 20 Months Aged Out No longer eligible based on patient's age to complete this topic Procedures Procedure Name Priority Date/Time Associated Diagnosis Comments COLLECTION VENOUS BLOOD VENIPUNCTURE Routine 07/07/2024 3:46 PM BRAND STRATEGIST Annual physical exam General medical exam Drug therapy URINALYSIS AUTO DIP Routine 07/07/2024 Annual physical exam General medical exam Drug therapy OUTSIDE LAB COVID-19 (SCAN ORDER) Routine 06/11/2024 OUTSIDE LAB (SCAN ORDER) 06/11/2024 OUTSIDE LAB (SCAN ORDER) 06/11/2024 OUTSIDE LAB (SCAN ORDER) 06/11/2024 HEPATITIS C ANTIBODY Routine 07/04/2023 11:48 AM BRAND STRATEGIST Annual physical exam General medical exam Encounter for hepatitis C screening test for low risk patient from Last 3 Months or Most Recently Relevant to Health Maintenance Results * URINALYSIS AUTO DIP (07/07/2024) COLOR (U) YELLOW YELLOW [address], [place] TRANSPARENCY CLEAR CLEAR MG[address], [place] GLUCOSE (U) NEGATIVE NEGATIVE MG/DL MG[address], [place] BILIRUBIN (U) NEGATIVE NEGATIVE MG-[address], [place] KETONES MG/DL (U) NEGATIVE NEGATIVE MG/DL MG[address], [place] SPECIFIC GRAVITY (U) 1.025 1.001 - 1.035 MG[address], [place] BLOOD (U) NEGATIVE NEGATIVE MG[address], [place] U PH 7.0 5.0 - 9.0 MG[address], [place] PROTEIN (U) NEGATIVE NEGATIVE mg/dL MG-[address], [place] UROBILINOGEN Normal 0.2 - 1.0 EU/dL = mg/dL MG-[address], [place] NITRITES NEGATIVE NEGATIVE MG/DL MG-[address], [place] LEUKOCYTES (U) NEGATIVE NEGATIVE MG-[address], [place] URINE SPECIMEN OBTAINED BY CLEAN CATCH PROCEDURE / Unknown 07/07/2024 Tradono Dominga Choudhury MD URINE ORDERABLES Final Result [address], [place] [address] [place] [address], [place] [phone] * (ABNORMAL) OUTSIDE LAB COVID-19 (06/11/2024) CORONAVIRUS SARS COV 2 PCR (RESP) DETECTED( Crit) NOT DETECTED HS ONBASE 06/11/2024 Result [facility] Scanned SCANNING Final Resu lt HS ONBASE * OUTSIDE LAB (SCAN ORDER) (06/11/2024) Only the most recent of3 resultswithin the time period is included. 06/11/2024 Result [facility] Scanned SCANNING Final Resu lt * HEPATITIS C ANTIBODY (07/04/2023 11:48 AM BRAND STRATEGIST) HEPATITIS C AB NON-REACTI VE NON-REACT GILL 07/04/2023 10:[address] [facility] Comment: ANTIBODIES TO HCV NOT DETECTED. DOES NOT EXCLUDE THE POSSIBILITY OF EXPOSURE TO HCV. 07/04/2023 11:4 8 AM BRAND STRATEGIST Dominga Choudhury MD LABORATORY Final Result [facility] [address] [place] [address], [id number] from Last 3 Months or Most Recently Relevant to Health Maintenance Insurance CIG Care Teams Wreath Machine Operator Relationship Specialty Start Date End Date Dominga Choudhury MD [address] [facility] [address] [place] [address] PCP - General INTERNAL MEDICINE 04/17/23
--- OUTSIDE RECORDS SUMMARY | 2024-07-08 09:20 | XMS_ITS | Clinical Summary ---
Author Organization [facility] [address] Address [address] [place] [id number] Care Team Providers Care Wrapper Off Name Role Phone No, Physician Primary Care Provider [phone] Allergies No known active allergies Medications albuterol HFA (PROVENTIL HFA,VENTOLIN HFA,PROAIR HFA) 90 mcg/actuation inhalerIndicati ons:Shortness of breath Inhale 2 puffs every 6 (six) hours as needed for wheezing or shortness of breath 1 each Active Active Problems No known active problems Social History Tobacco Use Types Packs/Day Years Used Date Smoking Tobacco: Never Assessed Smokeless Tobacco: Current Personal Safety Answer Date Recorded Getting School Help Needed Not on file 08/10 Sex and Gender Information Value Date Recorded Sex Assigned at Not on file Legal Sex Male 6:36 PM ADAPTIVE PHYSICAL EDUCATOR Gender Identity Not on file Sexual Orientation Not on file Obstetrics History Last Filed Vital Signs Vital Sign Reading Time Taken Comments Blood Pressure 128/70 05/14/2021 12:31 PM ADAPTIVE PHYSICAL EDUCATOR Pulse 68 05/14/2021 12:31 PM ADAPTIVE PHYSICAL EDUCATOR Temperature 36.8 ??C (98.3 ??F) 05/14/2021 12:[address] Respiratory Rate 22 05/14/2021 12:31 PM ADAPTIVE PHYSICAL EDUCATOR Oxygen Saturation 98% 05/14/2021 12:31 PM ADAPTIVE PHYSICAL EDUCATOR Inhaled Oxygen Concentration - - Weight 118.2 kg (260 lb 8 oz) 05/14/2021 12:31 P M ADAPTIVE PHYSICAL EDUCATOR Height 190.5 cm (6' 3 ) 05/14/2021 12:31 PM ADAPTIVE PHYSICAL EDUCATOR Body Mass Index 32.56 05/14/2021 12:31 PM ADAPTIVE PHYSICAL EDUCATOR Plan of Treatment Not on file Insurance Care Teams Wrapper Off Relationship Specialty Start Date End Date No, Physician PCP - General 05/14/21
--- OUTSIDE RECORDS SUMMARY | 2024-07-08 09:20 | XMS_ITS | Encounter Summary ---
Author Organization [facility] Address [address] [place] [address]. [place], [place] [address] [place] [address] Care Team Providers Care Director Of Loss Prevention Name Role Phone Dominga Choudhury MD Primary Care Provider Encounter Details Date Type Department Care Team (Late st Contact Info) Description 09/17/2023 Celsense Message [employer] Business Office [address] [place] [address] Pascal [employer], [facility] Provider Action Needed Social History Tobacco Use Types Packs/Day Years Used Date Smoking Tobacco: Every Day Cigarettes Passive Smoke Exposure: Never Smokeless Tobacco: Never Comments:Counseled by Dr Tracey trejo Alcohol Use Standard Drinks/Week Comments Not Currently 0 (1 standard drink = 0.6 oz pur e alcohol) PHQ-2 Answer Date Recorded Patient Health Questionnaire-2 Score 2 07/04/2023 Sex and Gender Information Value Date Recorded Sex Assigned at Not on file Legal Sex Male 4:46 PM CDT Gender Identity Not on file Sexual Orientation Not on file documented as of this encounter Plan of Treatment Upcoming Encounters Date Type Department Care Team (Late st Contact Info) Description 07/21/2024 7:00 AM SLIVER HANDLER Allied Health/Nurse Visit [facility] Medical Group Multispecialty Care - [address] [address] [address] [place], [place] [address] Dominga Choudhury MD [address] [place] [address] [address] [place] [address] documented as of this encounter Visit Diagnoses Not on filedocumented in this encounter Additional Health Concerns Infection Onset Date Last Indicated Resolved Time COVID-19 Rule Out 01/21/2024 01/21/2024 01/21/2024 5:10 PM CDT Assessment Noted Time PHQ-9 Depression Total Score: 10 024 11:38 AM SLIVER HANDLER documented as of this encounter Care Teams Director Of Loss Prevention Relationship Specialty Start Date End Date Dominga Choudhury MD [address] [address] PCP - General INTERNAL MEDICINE 04/17/23 documented as of this encounter
--- OUTSIDE RECORDS SUMMARY | 2024-07-08 09:20 | XMS_ITS | Patient Health Summary ---
Author Organization [facility] Address [address] [facility] [place] [address] Care Team Providers Care Meat Slicer Name Role Phone Arthur Franco MD Primary Care Provider [phone] Note from [facility],non-owned Affiliates and Associated Physician Practices is amultiple site organization consisting of ambulatory clinics and hospital sitesin [place], [place]. This disclosure is being madepursuant to the Care Everywhere program and may not contain all information available regarding this patient. Last updated 18.[facility] Social History Tobacco Use Types Packs/Day Years Used Date Smoking Tobacco: Never Assessed Sex and Gender Information Value Date Recorded Sex Assigned at Not on file Gender Identity Not on file Sexual Orientation Not on file Procedures * GROSS EXAM PATHOLOGY(Performed 04/04/1998) Results * GROSS EXAM PATHOLOGY (04/04/1998 8:10 AM CDT) Result CASE NUMBER [id number] [facility] PATH REPORT Comment: ORDERING PHYSICIAN ??HARLAN LEUNG SPECIMEN TYPE ?Adenoid CLINICAL HISTORY ? The patient is a 2-year-old boy with chronic otitis media. GROSS DESCRIPTION ? The specimen labeled with the patient's name and adenoid is received fresh for gross examination only and consists of three fragments of pink-ramsay lymphoid tissue with an aggregate measurement of 2 x 2 x 1 cm., weighing approximately 1 gram. ??No sections are taken. ??(CT/akn) GROSS DIAGNOSIS ? GROSS DIAGNOSIS ?? ADENOIDS. Outdoor Adventure Instructor ? Elida Hall PATHOLOGIST ?Varghese Giles M.D. ELECTRONICALLY LENINVARGHESE KINSEY MISCELLANEOUS SAMPLES / Unknown 04/04/1998 8:10 AM CDT 04/05/1998 2:12 PM CDT Historical Provider LAB - PATHOLOGY/C YTOLOGY ORDERABLES [facility] PATH REPORT Care Teams Meat Slicer Relationship Specialty Start Date End Date Arthur Franco MD [address] [place] [address] PCP - General 05/02/20
--- OUTSIDE RECORDS SUMMARY | 2024-07-08 09:20 | XMS_ITS | Referral Summary ---
Author Organization [facility] [address] [place] [place] Address [address] [place] [id number] Care Team Providers Care Casino Porter Name Role Phone No, Physician Primary Care Provider [phone] Allergies No known active allergies Medications albuterol [...] on file Legal Sex Male 6:36 PM BUSINESS ACCOUNT SPECIALIST Gender Identity Not on file Sexual Orientation Not on file Last Filed Vital Signs Vital Sign Reading Time Taken Comments Blood Pressure 128/70 05/14/2021 12:31 PM BUSINESS ACCOUNT SPECIALIST Pulse 68 05/14/2021 12:31 PM BUSINESS ACCOUNT SPECIALIST Temperature 36.8 ??C (98.3 ??F) 05/14/2021 12:[address] Respiratory Rate 22 05/14/2021 12:31 PM BUSINESS ACCOUNT SPECIALIST Oxygen Saturation 98% 05/14/2021 12:31 PM BUSINESS ACCOUNT SPECIALIST Inhaled Oxygen Concentration - - Weight 118.2 kg (260 lb 8 oz) 05/14/2021 12:31 P M BUSINESS ACCOUNT SPECIALIST Height 190.5 cm (6' 3 ) 05/14/2021 12:31 PM BUSINESS ACCOUNT SPECIALIST Body Mass Index 32.56 05/14/2021 12:31 PM BUSINESS ACCOUNT SPECIALIST Plan of Treatment Not on file Insurance [facility] H[facility]PP[facility] Address: [address] [address] Care Teams Casino Porter Relationship Specialty Start Date End Date No, Physician PCP - General 05/14/21
--- OUTSIDE RECORDS SUMMARY | 2024-07-08 09:20 | XMS_ITS | Encounter Summary ---
Author Organization [facility] Address [address] [place] [address]. [place] [address] [place] [address] Care Team Providers Care Pelts Skinner Name Role Phone Dominga Choudhury MD Primary Care Provider [phone] Encounter Details Date Type Department Care Team (Late st Contact Info) Description 10/24/2023 MyChart Message [facility] [place] [address] [facility] [address] [place] [address] Anahi Tenorio, PRODUCT/DEVICE TECHNOLOGIST [address] [place] [address] Bacterie (U) Social History Tobacco Use Types Packs/Day Years Used Date Smoking Tobacco: Former Cigarettes Passive Smoke Exposure: Never Smokeless Tobacco: Never Comments:Patient smoked ciga rettes from 2011 to 2019 1 PPD on average. Currently vapes. Alcohol Use Standard Drinks/Week Comments Not Currently [...] st Contact Info) Description 07/21/2024 7:00 AM TREE FRUIT AND NUT FARMING SUPERVISOR [facility] [address] [place] [address] Dominga Choudhury MD [address] [address] documented as of this encounter Visit Diagnoses Not on filedocumented in this encounter Additional Health Concerns Infection Onset Date Last Indicated Resolved Time COVID-19 Rule Out 01/21/2024 01/21/2024 01/21/2024 5:10 PM CDT Assessment Noted Time PHQ-9 Depression Total Score: 10 024 11:38 AM TREE FRUIT AND NUT FARMING SUPERVISOR documented as of this encounter Care Teams Pelts Skinner Relationship Specialty Start Date End Date Dominga Choudhury MD [address] [address] PCP - General INTERNAL MEDICINE 04/17/23 documented as of this encounter
--- OUTSIDE RECORDS SUMMARY | 2024-07-08 09:20 | XMS_ITS | Clinical Summary ---
Author Organization [facility] Address [address] [place] [address] Care Team Providers Care House Mover Helper Name Role Phone Arthur Franco MD Primary Care Provider [phone] Source Comments [facility],non-owned Affiliates and Associated Physician Practices is amultiple site organization consisting of ambulatory clinics and hospital sitesin [place], [place], [place] and [place]. This disclosure is being madepursuant to the Care Everywhere program and may not contain all information available regarding this patient. Last updated 18.[facility] Social History Tobacco Use Types Packs/Day Years Used Date Smoking Tobacco: Never Assessed Sex and Gender Information Value Date Recorded Sex Assigned at Not on file Gender Identity Not on file Sexual Orientation Not on file Plan of Treatment Health Maintenance Due Date Last Done Comments HIV SCREENING 08/30/2010 HEPATITIS C SCREENING 08/26/2013 DTAP/TDAP/TD VACCINES (1 - Tdap) 08/30/2014 HEPATITIS B VACCINE (1 of 3 - 19+ 3-dose series) 08/30/2014 COVID-19 VACCINE ( - 2023-2 5 season) 2024 INFLUENZA VACCINE (#1) 2024 05/03/2010 DEPRESSION SCREENING 06/16/2024 ZOSTER VACCINE (1 of 2) 08/30/2045 HIB VACCINE Aged Out No longer eligi ble based on patient's age to complete this topic HPV VACCINE Aged Out No longer eligi ble based on patient's age to complete this topic MENINGOCOCCAL (Group B) VACCINE Aged Out No longer eligible based on patient's age to complete this topic MENINGOCOCCAL VACCINE Aged Out No jackie natalia eligible based on patient's age to complete this topic PNEUMOCOCCAL VACCINE Aged Out No long er eligible based on patient's age to complete this topic Care Teams House Mover Helper Relationship Specialty Start Date End Date Arthur Franco MD [address] [place] [address] PCP - General 05/02/20
== END 2024-07-04 00:39 | disposition home or self-care (01) ==
PROVIDERS: Emergency Medicine; Emergency Provider Registered Nurse; PCP Internal Medicine
DX: J18.9 Pneumonia, unspecified organism (principal); Z20.822 Contact with and (suspected) exposure to COVID-19; F17.200 Nicotine dependence, unspecified, uncomplicated
CPT/HCPCS: 36415; 71046; 80053; 81001; 85025; 87637; 93005; 96360; 99283; A9270; J7030

== ENCOUNTER 2024-07-14 09:14 | Emergency (ER) | payer OTHER, SELFPAY ==
--- NOTE | ~2024-07-14 | CT_ITS ---
EXAMINATION: CTA chest PE protocol DATE: 07/14/2024 12:08 INDICATION: Hemoptysis. TECHNIQUE: Computed tomography angiography (CTA) of the chest was performed with 100 mL Omnipaque-350 intravenous contrast timed to evaluate the pulmonary arteries. Coronal maximum intensity projection 3D-reconstructions were created by the technologist. Automated exposure control and iterative reconst ruction technique were employed. The dose-length product was 834.38 mGy-cm. COMPARISON: Chest 2 views 07/03/2024 FINDINGS: There are airspace opacities in lingula with air bronchograms and volume loss. No pleural e ffusion. The heart size is normal. No pericardial effusion. There is no pulmonary embolus. There is m ild thoracic spondylosis. IMPRESSION: 1. No pulmonary embolus. 2. Airspace opacities in the lingula, likely a combination of pneumonia and atelectasis. Reviewed, dictated and finalized at location [facility] IMPRESSION: 1. No pulmonary embolus. 2. Airspace opacities in the lingula, likely a combination of pneumonia and ate lectasis.
[2024-07-14 09:19] VITALS: BP 141/90; PULSE 89; RESP 20; TEMP 36.7; O2SAT 99
--- OUTSIDE RECORDS SUMMARY | 2024-07-14 09:43 | XMS_ITS | Encounter Summary ---
Author Organization [facility] Address [address] [place] [address]. [place] [address] [place] [address] Care Team Providers Care Coal Bagger Name Role Phone Dominga Choudhury MD Primary Care Provider [phone] Encounter Details Date Type Department Care Team (Late st Contact Info) Description 10/24/2023 MyChart Message [facility] [place] [address] [facility] [address] [place] [address] Anahi Tenorio, SUPERVISOR METAL FABRICATING [address] [place] [address] Bacterie (U) Social History Tobacco Use Types [...] st Contact Info) Description 07/21/2024 7:00 AM COMMERCIAL LOAN SPECIALIST [facility] [address] [place] [address] Dominga Choudhury MD [address] [address] documented as of this encounter Visit Diagnoses Not on filedocumented in this encounter Additional Health Concerns Infection Onset Date Last Indicated Resolved Time COVID-19 Rule Out 01/21/2024 01/21/2024 01/21/2024 5:10 PM CDT Assessment Noted Time PHQ-9 Depression Total Score: 10 024 11:38 AM COMMERCIAL LOAN SPECIALIST documented as of this encounter Care Teams Coal Bagger Relationship Specialty Start Date End Date Dominga Choudhury MD [address] [address] PCP - General INTERNAL MEDICINE 04/17/23 documented as of this encounter
--- OUTSIDE RECORDS SUMMARY | 2024-07-14 09:44 | XMS_ITS | Clinical Summary ---
Author Organization [facility] Address [address] [facility] [place] [address] Care Team Providers Care Pre Coder Name Role Phone Arthur Franco MD Primary Care Provider [phone] Source Comments [facility],non-owned Affiliates and Associated Physician Practices is amultiple site organization consisting of ambulatory clinics and hospital sitesin [place], [place], [place] and [place]. This disclosure is being madepursuant to the Care Everywhere program and may not contain all information available regarding this patient. Last updated 18.[facility] Social History Tobacco Use Types Packs/Day Years [...] age to complete this topic Care Teams Pre Coder Relationship Specialty Start Date End Date Arthur Franco MD [address] [place] [address] PCP - General 05/02/20
--- OUTSIDE RECORDS SUMMARY | 2024-07-14 09:44 | XMS_ITS | Encounter Summary ---
Author Organization [facility] Address [address] [place] [address]. [place], [place] [address] [place] [address] Care Team Providers Care Glaze Maker Name Role Phone Dominga Choudhury MD Primary Care Provider [phone] Reason for Visit * Reason Onset Date Comments Follow Up Call 07/14/2024 Encounter Details Date Type Department Care Team (Late st Contact Info) Description 07/14/2024 Telephone [facility] Multispecialty Care - [place] [address] [address] [place] [address] Dominga Choudhury MD [address] [place] [address] [address] [place] [address] Follow Up Call Social History Tobacco Use Types Packs/Day Years [...] on file documented as of this encounter Progress Notes * Jennifer Gilma Carlos - 07/14/2024 9:36 AM CST The patient called in stating that he is not getting better since his last office visit June which he advised that he had roxane diagnosed by [facility] Emergency Room on July 03, 2024 with Pneumonia. The patient states that he still has chest congestion and productive cough with dark green sputum and bright red blood. I spoke with Briseida Keating MA about the cough with blood and she came back to advise that per Dr.Nueki Choudhury the patient should be evaluated at the Emergency Room. This information was relayed to the patient and voiced understanding. RESPIRATORY documented in this encounter Plan of Treatment Upcoming Encounters Date Type Department Care Team (Late st Contact Info) Description 07/21/2024 7:00 AM VP RESPIRATORY Allied Health/Nurse Visit [facility] Multispecialty Care [place] [address] [address] [place] [address] Dominga Choudhury MD [address] [place] [address] documented as of this encounter Visit Diagnoses Not on filedocumented in this encounter Additional Health Concerns Assessment Noted Time PHQ-9 Depression Total Score: 10 024 11:38 AM VP RESPIRATORY documented as of this encounter Care Teams Glaze Maker Relationship Specialty Start Date End Date Dominga Choudhury MD [address] [place] [address] PCP - General INTERNAL MEDICINE 04/17/23 documented as of this encounter
--- OUTSIDE RECORDS SUMMARY | 2024-07-14 09:44 | XMS_ITS | Patient Health Summary ---
Author Organization [facility] Address [address] [facility] [place] [address] Care Team Providers Care Back Roller Name Role Phone Arthur Franco MD Primary Care Provider [phone] Note from [facility],non-owned Affiliates and Associated Physician Practices is amultiple site organization consisting of ambulatory clinics and hospital sitesin [place], [place] and [place]. This disclosure is being madepursuant to the Care Everywhere program and may not contain all information available regarding this patient. Last updated 18.[facility] Social History Tobacco Use Types Packs/Day Years Used Date Smoking Tobacco: Never Assessed Sex and Gender Information Value Date Recorded Sex Assigned at Not on file Gender Identity Not on file Sexual Orientation Not on file Procedures * GROSS EXAM PATHOLOGY(Performed 04/04/1998) Results * GROSS EXAM PATHOLOGY (04/04/1998 8:10 AM CDT) Result CASE NUMBER [id number] [facility] PATH REPORT Comment: ORDERING PHYSICIAN [...] GROSS DIAGNOSIS ? GROSS DIAGNOSIS ?? ADENOIDS. Manager Telemetry ? Elida Hall PATHOLOGIST ?Varghese Giles M.D. ELECTRONICALLY LENINVARGHESE KINSEY MISCELLANEOUS SAMPLES / Unknown 04/04/1998 8:10 AM CDT 04/05/1998 2:12 PM CDT Historical Provider LAB - PATHOLOGY/C YTOLOGY ORDERABLES [facility] PATH REPORT Care Teams Back Roller Relationship Specialty Start Date End Date Arthur Franco MD [address] [place] [address] PCP - General 05/02/20
--- OUTSIDE RECORDS SUMMARY | 2024-07-14 09:44 | XMS_ITS | Referral Summary ---
Author Organization [facility] [address] Address [address] [place] [id number] Care Team Providers Care Launderette Attendant Name Role Phone No, Physician Primary Care Provider [phone] Allergies No known active allergies Medications albuterol [...] on file Legal Sex Male 6:36 PM CLAIM AGENT Gender Identity Not on file Sexual Orientation Not on file Last Filed Vital Signs Vital Sign Reading Time Taken Comments Blood Pressure 128/70 05/14/2021 12:31 PM CLAIM AGENT Pulse 68 05/14/2021 12:31 PM CLAIM AGENT Temperature 36.8 ??C (98.3 ??F) 05/14/2021 12:[address] Respiratory Rate 22 05/14/2021 12:31 PM CLAIM AGENT Oxygen Saturation 98% 05/14/2021 12:31 PM CLAIM AGENT Inhaled Oxygen Concentration - - Weight 118.2 kg (260 lb 8 oz) 05/14/2021 12:31 P M CLAIM AGENT Height 190.5 cm (6' 3 ) 05/14/2021 12:31 PM CLAIM AGENT Body Mass Index 32.56 05/14/2021 12:31 PM CLAIM AGENT Plan of Treatment Not on file Insurance [facility] H[facility]/PPO Address: [address] [address] Care Teams Launderette Attendant Relationship Specialty Start Date End Date No, Physician PCP - General 05/14/21
--- OUTSIDE RECORDS SUMMARY | 2024-07-14 09:44 | XMS_ITS | Clinical Summary ---
Author Organization [facility] Address [address] [place] [address]. [place], [place] [address] [place] [address] Care Team Providers Care Practice Administrator Name Role Phone Dominga Choudhury MD Primary Care Provider [phone] Allergies Active Allergy Reactions Criticality Noted Date Comments Peanut-Containing Drug Products Nausea and Vomiting 10/23/2023 Throat swelling Medications CPAP DEVICE, DME,Indications :LENNOX (obstructive sleep apnea) Use nightly when sleeping. Send to [employer]. [employer] Device 4 Active Additional Information Patient not [...] Encounters Date Type Department Care Team Description 07/14/2024 Telephone [facility] Medical [facility] Multispecialty Care - [place] [address] [facility] [address] [place] [address] Dominga Choudhury MD Follow Up Call 07/07/2024 3:20 PM COMPUTER SCIENCE INSTRUCTOR Office Visit [facility] - [place] [address] [address] [address] [place] [address] Dominga Choudhury MD Physical (Pt has pneumonia ) 07/07/2024 Travel 07/03/2024 Scan [facility] Scanned, Doc [facility] (SCAN) 07/03/2024 Scan [facility] Scanned, Doc [facility] (SCAN); Image (SCAN) 06/11/2024 Scan [facility] [...] Comments Blood Pressure 131/82 07/07/2024 3:13 PM COMPUTER SCIENCE INSTRUCTOR Pulse 82 07/07/2024 3:13 PM COMPUTER SCIENCE INSTRUCTOR Temperature 36.6 ??C (97.8 ??F) 07/07/2024 3:13 PM CS T Respiratory Rate 18 07/07/2024 3:13 PM COMPUTER SCIENCE INSTRUCTOR Oxygen Saturation 99% 07/07/2024 3:13 PM COMPUTER SCIENCE INSTRUCTOR Inhaled Oxygen Concentration - - Weight 135.4 kg (298 lb 6.4 oz) 07/07/2024 3:13 PM COMPUTER SCIENCE INSTRUCTOR Height 193 cm (6' 4 ) 07/07/2024 3:13 PM COMPUTER SCIENCE INSTRUCTOR Body Mass Index 36.32 07/07/2024 3:13 PM COMPUTER SCIENCE INSTRUCTOR Plan of Treatment Upcoming Encounters Date Type Department Care Team (Late st Contact Info) Description 07/21/2024 7:00 AM COMPUTER SCIENCE INSTRUCTOR Allied Health/Nurse Visit [facility] Medical [facility] Multispecialty Care [address] [place] [address] Dominga Choudhury MD [address] [facility] [address] [place] [address] Health Maintenance Due Date Last Done Comments Pneumococcal Vaccine: Pediatrics (0 to 5 Years) and At-Risk Patients (6 to 64 Years) (1 of 2 - PCV) 08/30/2001 COVID-19 Vaccine (3 - 2023- season) 2024 12/26/2020, 12/05/2020 Influenza Adult (#1) 2024 07/04/2023, 06/28/2012, 05/03/2010 PHQ-2 (Physician [place]) 06/16/2024 07/04/2023 Annual Physical 07/07/2025 07/07/2024, 07/04/2023 DTaP, [...] VENOUS BLOOD VENIPUNCTURE Routine 07/07/2024 3:46 PM COMPUTER SCIENCE INSTRUCTOR Annual physical exam General medical exam Drug therapy URINALYSIS AUTO DIP Routine 07/07/2024 Annual physical exam General medical exam Drug therapy OUTSIDE LAB COVID-19 (SCAN ORDER) Routine 07/03/2024 OUTSIDE LAB (SCAN ORDER) 07/03/2024 OUTSIDE LAB (SCAN ORDER) 07/03/2024 OUTSIDE LAB (SCAN ORDER) 07/03/2024 IMAGE GENERIC 07/03/2024 OUTSIDE LAB COVID-19 (SCAN ORDER) Routine 06/11/2024 OUTSIDE LAB (SCAN ORDER) 06/11/2024 OUTSIDE LAB (SCAN ORDER) 06/11/2024 OUTSIDE LAB (SCAN ORDER) 06/11/2024 HEPATITIS C ANTIBODY Routine 07/04/2023 11:48 AM COMPUTER SCIENCE INSTRUCTOR Annual physical exam General medical exam Encounter for hepatitis C screening test for low risk patient from Last 3 Months or Most Recently Relevant to Health Maintenance Results * URINALYSIS AUTO DIP (07/07/2024) Pathologist [facility] COLOR (U) YELLOW YELLOW [address], [place] TRANSPARENCY CLEAR CLEAR MG[address], [place] GLUCOSE (U) NEGATIVE NEGATIVE MG/DL MG-[address], [place] BILIRUBIN (U) NEGATIVE NEGATIVE MG-[address], [place] KETONES MG/DL (U) NEGATIVE NEGATIVE MG/DL MG-[address], [place] SPECIFIC GRAVITY (U) 1.025 1.001 - 1.035 MG[address], [place] BLOOD (U) NEGATIVE NEGATIVE MG-[address], [place] U PH 7.0 5.0 - 9.0 MG[address], [place] PROTEIN (U) NEGATIVE NEGATIVE mg/dL MG-[address], [place] UROBILINOGEN Normal 0.2 - 1.0 EU/dL = mg/dL MG-[address], [place] NITRITES NEGATIVE NEGATIVE MG/DL MG-[address], [place] LEUKOCYTES (U) NEGATIVE NEGATIVE MG-[address], [place] URINE SPECIMEN OBTAINED BY CLEAN CATCH PROCEDURE / Unknown 07/07/2024 us Dominga Choudhury MD URINE ORDERABLES Final Result [address], [place] [address] [place] [address], * OUTSIDE LAB COVID-19 (07/03/2024) Only the most recent of2 resultswithin the time period is included. CORONAVIRUS SARS COV 2 PCR (RESP) NOT DETECTED NOT DETECTED HS ONBASE 07/03/2024 Result [facility] [employer] [facility] Group Scanned SCANNING Final Resu lt Performing Organization Address [facility] Co de Phone Number [facility] ONBASE * OUTSIDE LAB (SCAN ORDER) (07/03/2024) Only the most recent of6 resultswithin the time period is included. 07/03/2024 [employer] [facility] Group Scanned SCANNING Final Resu lt * IMAGE GENERIC (07/03/2024) Anatomical Region Laterality Modality Other 07/03/2024 Result [facility] [employer] [facility] Scanned SCANNING Final Resu lt * HEPATITIS C ANTIBODY (07/04/2023 11:48 AM COMPUTER SCIENCE INSTRUCTOR) Pathologist [facility] HEPATITIS C AB NON-REACTI VE NON-REACT GILL 07/04/2023 10:00 PM COMPUTER SCIENCE INSTRUCTOR [facility] Comment: ANTIBODIES TO HCV NOT DETECTED. DOES NOT EXCLUDE THE POSSIBILITY OF EXPOSURE TO HCV. 07/04/2023 11:4 8 AM COMPUTER SCIENCE INSTRUCTOR Dominga Choudhury MD LABORATORY Final Result Performing Organization Address City/[facility] Co de Phone Number [facility] [address] [place] [address], [place] [phone] [id number] from Last 3 Months or Most Recently Relevant to Health Maintenance [facility] Care Teams Practice Administrator Relationship Specialty Start Date End Date Dominga Choudhury MD [facility] [address] [address] PCP - General INTERNAL MEDICINE 04/17/23
--- OUTSIDE RECORDS SUMMARY | 2024-07-14 09:44 | XMS_ITS | Clinical Summary ---
Author Organization [facility] [address] Address [address] [place] [phone] Care Team Providers Care Recessing Machine Operator Name Role Phone No, Physician Primary Care Provider [phone] Allergies No known active allergies Medications albuterol [...] on file Legal Sex Male 6:36 PM BRAKE RELINER Gender Identity Not on file Sexual Orientation Not on file Obstetrics History Last Filed Vital Signs Vital Sign Reading Time Taken Comments Blood Pressure 128/70 05/14/2021 12:31 PM BRAKE RELINER Pulse 68 05/14/2021 12:31 PM BRAKE RELINER Temperature 36.8 ??C (98.3 ??F) 05/14/2021 12:[address] Respiratory Rate 22 05/14/2021 12:31 PM BRAKE RELINER Oxygen Saturation 98% 05/14/2021 12:31 PM BRAKE RELINER Inhaled Oxygen Concentration - - Weight 118.2 kg (260 lb 8 oz) 05/14/2021 12:31 P M BRAKE RELINER Height 190.5 cm (6' 3 ) 05/14/2021 12:31 PM BRAKE RELINER Body Mass Index 32.56 05/14/2021 12:31 PM BRAKE RELINER Plan of Treatment Not on file Insurance Care Teams Recessing Machine Operator Relationship Specialty Start Date End Date No, Physician PCP - General 05/14/21
--- OUTSIDE RECORDS SUMMARY | 2024-07-14 09:44 | XMS_ITS | Encounter Summary ---
Author Organization [facility] Address [address] [place] [address]. [place], [place] [address] [place] [address] Care Team Providers Care Welding Machine Operator Friction Name Role Phone Dominga Choudhury MD Primary Care Provider Encounter Details Date Type Department Care Team (Late st Contact Info) Description 09/17/2023 [employer] Business Office [address] [place] [address] [employer], [facility] Provider Action Needed Social History Tobacco Use [...] st Contact Info) Description 07/21/2024 7:00 AM SPECIAL WARFARE COMBATANT CREWMAN Allied Health/Nurse Visit [facility] Medical Group Multispecialty Care - [place] [address] [address] [place], [place] [address] Dominga Choudhury MD [address] [place] [address] [address] [place] [address] documented as of this encounter Visit Diagnoses Not on filedocumented in this encounter Additional Health Concerns Infection Onset Date Last Indicated Resolved Time COVID-19 Rule Out 01/21/2024 01/21/2024 01/21/2024 5:10 PM CDT Assessment Noted Time PHQ-9 Depression Total Score: 10 024 11:38 AM SPECIAL WARFARE COMBATANT CREWMAN documented as of this encounter Care Teams Welding Machine Operator Friction Relationship Specialty Start Date End Date Dominga Choudhury MD [address] [address] PCP - General INTERNAL MEDICINE 04/17/23 documented as of this encounter
--- OUTSIDE RECORDS SUMMARY | 2024-07-14 09:44 | XMS_ITS | Referral Summary ---
Author Organization [facility] Address [address] [facility] [place] [address] Care Team Providers Care Retail Performance Specialist Name Role Phone Arthur Franco MD Primary Care Provider [phone] Source Comments [facility],non-[facility] Affiliates and Associated Physician Practices is amultiple site organization consisting of ambulatory clinics and hospital sitesin [place], [place], [place] and [place]. This disclosure is being madepursuant to the Care Everywhere program and may not contain all information available regarding this patient. Last updated 18.[facility] Social History Tobacco Use Types Packs/Day Years Used Date Smoking Tobacco: Never Assessed Sex and Gender Information Value Date Recorded Sex Assigned at Not on file Gender Identity Not on file Sexual Orientation Not on file Plan of Treatment Not on file Care Teams Retail Performance Specialist Relationship Specialty Start Date End Date Arthur Franco MD [address] [place] [address] [facility] - General 05/02/20
--- NOTE | 2024-07-14 10:49 | ECG_ITS ---
Test Date: 2024-07-14 11:27:21 Measurements Intervals [place] Rate: 70 P: 55 RI: 168 QRS: 32 QRSD: 86 T: 32 QT: 379 QTc: 412 Interpretive Statements SINUS RHYTHM Compared to ECG 07/03/2024 23:50:49 No significant changes Electronically Signed On 07-14-2024 16:08:55 AIR TECHNICIAN by Arnold Balderas M.D.
[2024-07-14 11:37] VITALS: BP 133/81; PULSE 74; RESP 19; O2SAT 100
--- NOTE | 2024-07-14 11:37 | ED_ITS ---
HPI - General Adult General Chief complaint: Recheck/Abnormal Lab/Rx Stated complaint: PNA Time Seen by Provider: 07/14/24 10:46 History of Present Illness HPI narrative: 28-year-old male present to the emergency department for evaluation for cough and congestion. Patient states approximately 10 days ago he was diagnosed with a pneumonia and started on antibiotics. Patient states he is having persistent cough and did notice some hemoptysis this morning. He describes as proximally 5 drops of blood. Patient denies any gross hemoptysis. Patient states this only happened the 1 time. Patient is not on any blood thinners. Patient does report some chest tightness with cough. Patient denies any prior history of pulmonary embolism. Related Data Allergies Allergy/AdvReac Type Severity Reaction Status Date / Time nut - unspecified Allergy Swelling Verified 02/08/24 14:03 of Lip/Tongue/Throat Review of Systems 2 Review of Systems: All systems reviewed & are unremarkable except as noted in HPI and below PMFSH Past Medical History Medical History Patient denies significant medical history Social History Social History Smoking status: Current every day smoker Exam 2 Narrative: APPEARANCE: Well appearing, no pain, no distress, well-nourished. HEAD: normocephalic, atraumatic. EYES: PERRLA/EOMI, conjunctivae clear. NOSE: Normal no drainage EARS:TMS clear with good light reflex. THROAT: Pharynx clear, no exudate. NECK: Supple. No adenopathy, no masses. RESPIRATORY: Airway patent, respirations nonlabored. Clear to auscultation bilaterally, no rales, rhonchi, wheezing. CARDIOVASCULAR: Regular rate and rhythm without murmurs rubs or gallops. ABDOMINAL: Soft, nontender, nondistended, normal bowel sounds MUSCULOSKELETAL: Moves all extremities. Strength/ROM intact, No edema, No calf tenderness. NEURO: Alert. Cranial nerves II through XII intact. Grossly intact SKIN: Warm, dry. Normal Color Course Vital Signs Vital signs: Vital Signs Temperature 98.0 F 07/14/24 09:19 Pulse Rate 89 07/14/24 09:19 Respiratory Rate 20 07/14/24 09:19 Blood Pressure 141/90 H 07/14/24 09:19 Pulse Oximetry 99 07/14/24 09:19 Temperature 99.1 F 07/14/24 13:02 Pulse Rate 74 07/14/24 11:37 Respiratory Rate 19 07/14/24 11:39 Blood Pressure 133/81 07/14/24 11:37 Pulse Oximetry 100 07/14/24 11:39 Medical Decision Making MDM Narrative Medical decision making narrative: 28-year-old male present to the emergency department for evaluation for 1 episode of hemoptysis. Patient is afebrile with no leukocytosis and hemoglobin of 14.6. Patient has an INR of 1.0. Patient has no abnormalities of significance on his CMP CTA was ordered to evaluate for the hemoptysis. CTA was negative for pulmonary embolism. Patient just recently completed antibiotics yesterday. With recently completing antibiotics patient will not be started on antibiotics. With the patient being afebrile with no leukocytosis and no body aches fatigue or shortness of breath I suspect the patient is still in the healing process from his most recent pneumonia for which he was treated with doxycycline and Augmentin. Patient will be provided medications for cough. Patient was educated on reasons to return to the emergency department reasons for it close follow-up with primary care physician. All questions concerns were addressed. Differential Diagnosis Differential Diagnosis: Pneumonia, COVID, RSV, influenza, pneumothorax, pulmonary embolism, bronchitis Vital Signs Vital Signs: Vital Signs Temperature 98.0 F 07/14/24 09:19 Pulse Rate 89 07/14/24 09:19 Respiratory Rate 20 07/14/24 09:19 Blood Pressure 141/90 H 07/14/24 09:19 Pulse Oximetry 99 07/14/24 09:19 Temperature 99.1 F 07/14/24 13:02 Pulse Rate 74 07/14/24 11:37 Respiratory Rate 19 07/14/24 11:39 Blood Pressure 133/81 07/14/24 11:37 Pulse Oximetry 100 07/14/24 11:39 Lab Data Lab results reviewed: Yes I reviewed the patient's lab results. 07/14/24 11:36 07/14/24 11:36 Labs: Lab Results 07/14/24 Range/Units 11:36 WBC 9.2 (4.5-10.0) K/mm3 RBC 4.87 (4.6-6.20) M/mm3 Hgb 14.6 (14.0-18.0) g/dL Hct 44.1 (42.0-52.0) % MCV 90.6 (80-100) fl MCH 30.0 (26-34) pg MCHC 33.1 (32-36) g/dl RDW 13.8 (11.5-14.5) % Plt Count 332 (150-375) k/mm3 MPV 8.8 (7.4-10.4) fl Immature Gran % (Auto) 0.3 (0-0.5) % Neut % (Auto) 60.0 (45.5-73.1) % Lymph % (Auto) 31.1 (18.3-44.2) % Mclean % (Auto) 6.0 (2.6-8.5) % Eos % (Auto) 2.2 (0-4.4) % Baso % (Auto) 0.4 (0.2-1.2) % Lymph # (Auto) 2.87 (0.9-3.2) K/mm3 Mclean # (Auto) 0.6 (0.1-0.6) K/mm3 Eos # (Auto) 0.2 (0-0.3) K/mm3 Baso # (Auto) 0.0 (0.0-0.1) K/mm3 Abs Immat Gran (auto) 0.03 (0.00-0.031) K/mm3 Absolute Neuts (auto) 5.6 (1.3-6.7) K/mm3 Absolute Nucleated RBC 0.000 (0.0-0.012) K/mm3 Nucleated RBC % 0.0 (0.0-0.2) % PT 13.5 (11.1-14.7) Seconds INR 1.0 APTT 26.5 (22.3-36.8) Seconds Sodium 138 (137-145) mmol/L Potassium 4.5 (3.4-5.0) mmol/L Chloride 105 (98-107) mmol/L Carbon Dioxide 25 (22-30) mmol/L Anion Gap 8 (4-12) mmol/L BUN 11 (9-20) mg/dL Creatinine 0.78 (0.7-1.3) mg/dL Estim Creat Clear Calc 182 ml/min Estimated GFR > 60 (59 - ) Glucose 93 (65-110) mg/dL Calcium 9.0 (8.4-10.2) mg/dL Total Bilirubin 1.2 (0.2-1.3) mg/dL AST 31 (17-59) U/L ALT 62 H (6-50) U/L Alkaline Phosphatase 93 (38-126) U/L Total Protein 7.0 (6.3-8.2) g/dL Albumin 3.9 (3.5-5.1) g/dL Imaging Data Radiologist's impression: Impressions Chest CTA 07/14/24 12:13 IMPRESSION: 1. No pulmonary embolus. 2. Airspace opacities in the lingula, likely a combination of pneumonia and atelectasis. Discharge Plan Discharge Clinical Impression: Hemoptysis Patient Disposition: Home, Self-Care Condition: Stable Instructions: Antibiotic Form, Acute Bronchitis (ED), Bronchospasm (ED) Additional Instructions: Albuterol as needed for cough and shortness of breath. Tessalon Perles for cough. Tylenol 3 for additional cough suppression. If you start running a fever, have worsening shortness of breath or have worsening body aches and fatigue then please have close follow-up with your primary care physician as this would be concerning for a recurrent pneumonia. Patient Language: Estonian Prescriptions: New albuterol sulfate [Ventolin HFA] 90 mcg/actuation HFA aerosol inhaler 1 inh inhalation QID PRN (Reason: shortness of breath or wheezing) Qty: 6.7 0RF acetaminophen-codeine 300-30 mg tablet 1 tablet PO Q12H PRN (Reason: cough) Qty: 10 0RF No Action prednisone 50 mg tablet 50 mg PO DAILY Qty: 5 0RF Rx Instructions: take in am with food albuterol sulfate 90 mcg/actuation HFA aerosol inhaler 2 puff inhalation QID PRN (Reason: shortness of breath or wheezing) Qty: 8.5 0RF amoxicillin-pot clavulanate 875-125 mg tablet 1 tablet PO Q12H Qty: 20 0RF prednisone 20 mg tablet 20 mg PO BID Qty: 10 0RF doxycycline monohydrate 100 mg tablet 100 mg PO BID Qty: 14 0RF albuterol sulfate [Ventolin HFA] 90 mcg/actuation HFA aerosol inhaler 1 puff inhalation QID PRN (Reason: shortness of breath or wheezing) Qty: 8.5 0RF Follow-up/Referrals: Macey,MD Dominga [Primary Care Provider] -
[2024-07-14 11:39] VITALS: RESP 19; O2SAT 100
[2024-07-14 11:42] LABS: Basophils Percent Auto 0.4 % (0.2-1.2); Eosinophils Absolute Auto 0.2 K/mm3 (0-0.3); Eosinophils Percent Auto 2.2 % (0-4.4); Hematocrit 44.1 % (42.0-52.0); Hemoglobin 14.6 g/dL (14.0-18.0); Immature Granulocyte Absolute 0.03 K/mm3 (0.00-0.031); Immature Granulocyte Percent A 0.3 % (0-0.5); Lymphocytes Absolute Auto 2.87 K/mm3 (0.9-3.2); Lymphocytes Percent Auto 31.1 % (18.3-44.2); Mean Corpuscular HGB Conc 33.1 g/dl (32-36); Mean Corpuscular Volume 90.6 fl (80-100); Mean Platelet Volume 8.8 fl (7.4-10.4); Monocytes Absolute Auto 0.6 K/mm3 (0.1-0.6); Neutrophils Absolute Auto 5.6 K/mm3 (1.3-6.7); Platelet Count Result 332 k/mm3 (150-375); Red Blood Count 4.87 M/mm3 (4.6-6.20); Red Cell Distribution Width 13.8 % (11.5-14.5); White Blood Count 9.2 K/mm3 (4.5-10.0)
[2024-07-14 11:53] LABS: Alanine Aminotransferase 62 U/L (6-50); Albumin Level 3.9 g/dL (3.5-5.1); Alkaline Phosphatase 93 U/L (38-126); Anion Gap 8 mmol/L (4-12); Aspartate Amino Transferase 31 U/L (17-59); Bilirubin,Total 1.2 mg/dL (0.2-1.3); Blood Urea Nitrogen 11 mg/dL (9-20); Carbon Dioxide 25 mmol/L (22-30); Chloride 105 mmol/L (98-107); Estimated CRCL calculation 182 ml/min; Estimated Glomerular Filt Rate > 60; Glucose 93 mg/dL (65-110); Potassium 4.5 mmol/L (3.4-5.0); Sodium 138 mmol/L (137-145)
[2024-07-14 12:02] LABS: Partial Thromboplastin Time 26.5 Seconds (22.3-36.8); Prothrombin Time 13.5 Seconds (11.1-14.7)
--- OUTSIDE RECORDS SUMMARY | 2024-07-14 12:55 | XMS_ITS | Encounter Summary ---
Author Organization [facility] Address [address] [place] [address]. [place] [address] Care Team Providers Care Type Casting Machine Operator Name Role Phone Dominga Choudhury MD Primary Care Provider Reason for Referral * Procedure (Routine) - New Request Specialty Diagnoses / Procedures Referred By Contac t Referred To Contact Diagnoses Exercise-induced asthma (HHS/HCC) Procedures Methacholine Challenge (69147) Dominga Choudhury MD [address] [address] Phone: tel: fax: Referral ID Status Reason Start Date Expiration Date V isits Requested Visits Authorized [id number] New Request 07/07/2024 08/07/2025 1 1 NATING MACHINE FEEDER Reason for Visit * Reason Comments Physical Pt has pneumonia Encounter Details Date Type Department Care Team (Latest Contact Info) Description 07/07/2024 3:20 PM LAMINATING MACHINE FEEDER Office Visit [facility] Multispecialty Care - [address] [address] [address] [place], [place] [id number] Dominga Choudhury MD [address] [phone] Physical (Pt has pneumonia ) Social History Tobacco Use Types Packs/Day Years [...] on file documented as of this encounter Last Filed Vital Signs Vital Sign Reading Time Taken Comments Blood Pressure 131/82 07/07/2024 3:13 PM LAMINATING MACHINE FEEDER Pulse 82 07/07/2024 3:13 PM LAMINATING MACHINE FEEDER Temperature 36.6 ??C (97.8 ??F) 07/07/2024 3:13 PM CS T Respiratory Rate 18 07/07/2024 3:13 PM LAMINATING MACHINE FEEDER Oxygen Saturation 99% 07/07/2024 3:13 PM LAMINATING MACHINE FEEDER Inhaled Oxygen Concentration - - Weight 135.4 kg (298 lb 6.4 oz) 07/07/2024 3:13 PM LAMINATING MACHINE FEEDER Height 193 cm (6' 4 ) 07/07/2024 3:13 PM LAMINATING MACHINE FEEDER Body Mass Index 36.32 07/07/2024 3:13 PM LAMINATING MACHINE FEEDER documented in this encounter Patient Instructions * Patient Instructions* Dominga Choudhury MD - 07/07/2024 3:20 PM LAMINATING MACHINE FEEDER Follow up in October 2024 for your nicotine use. [address] [place], [place] [id number] NATING MACHINE FEEDER NATING MACHINE FEEDER * Attachments The following attachments cannot be sent through Care Everywhere. * Yearly Physical for Adults (Telugu) documented in this encounter Progress Notes * Dominga Choudhury MD - 07/07/2024 3:20 PM CSTSummary: Annual physical notes Images from the original note were not included. ANNUAL PHYSICAL NOTES Encounter Date: 07/07/2024 Chief Complaint: 28-year-old male presents for Physical (Pt has pneumonia ) HPI The patient is being seen for a health maintenance evaluation and follow up of chronic medical issues. At today's visit, patient referring to attention recently being seen at [facility] 07/03/2024in the ER for pneumonia. Currently yet to complete Augmentin, doxycycline and prednisone. Still with ongoing cough and patient concerned cough is interfering with sleep. No shortness of breath. Denies any chest tightness. No longer having fever or chills. Initially had 103.5 ??F fever which has since resolved. Patient compliant with taking medication. He did bring to my attention having had multiple respiratory infections the past 1 year. He did bring to my attention known history of exercise-induced asthma during younger years. Does not use an inhaler at this time. He is agreeable to having an inhaler. Currently vaping. Previously was smoking tobacco products. He would like to work on his own to see how he does cutting out tobacco products. He will let me know once he is ready to discontinue using tobacco products entirely at which time we will discuss treatment options. Currently vaping and currently doing one catridge every 3 days compared to one catridge per day. 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 He tells me he has been following up with the safety precaution LENNOX on CPAP and referred to see Dr. Vaughn. Currently patient reports he is not using his CPAP machine consistently. Ongoing intermittent chronic fatigue. His weight and BMI currently at 36.32 kg/m??. Was previously exercising regularly and no longer. Patient Active Problem List Diagnosis Left groin pain Abnormal urine odor Viral syndrome General Health: good Dental Health: Sees dentist regularly Vision Health: No vision correction Hearing Health: No hearing problems but reports tinnitus intermittently. Immunizations Needed: Influenza and COVID Weight: Obese Body mass index is 36.32 kg/m??. Physical Activity: Acitve lifestyle Prostate Cancer Screening: None Testicular Cancer Screening: None Colorectal Cancer Screening: None Metabolic Screening: Patient needs to be screened today. HCV Screening: Done PHQ-9 Screening Score: PHQ-9: 07/04/2023 11:38 AM PHQ2/PHQ 9 DEPRESSION SCREEN QUESTIONAIRE Little interest or pleasure in doing things Several days Feeling down, depressed, or hopeless Several days Patient Health Questionnaire-2 Score 2 Trouble falling or staying asleep, or sleeping too much Over half Feeling tired or having little energy Over half Poor appetite or overeating Over half Feeling bad about yourself - or that you are a failure or have let yourself or your family down Notat all Trouble concentrating on things, such as reading the newspaper or watching television Several days Moving or speaking so slowly that other people could have noticed? Or the opposite - being so fidgety or restless that you have been moving around a lot more than usual. Several days Thoughts that you would be better off or hurting yourself in some way Not at all Patient Health Questionnaire-9 Score 10 How difficult have these problems made it for you to do your work, take care of things at home, or get along with other people? Somewhat difficult ANGELINE-7 (Generalized Anxiety Disorder) Screening 07/04/2023 11:39 AM ANGELINE-7 Feeling nervous, anxious, or on edge 0 Not being able to stop or control worrying 0 Worrying too much about different things 1 Trouble relaxing 1 Being so restless that it is hard to sit still 0 Becoming easily annoyed or irritable 1 Feeling afraid as if something awful might happen 2 ANGELINE-7 Total Score 5 How difficult have these problems made it for you to do your work, take care of things at home, or get along with other people? Somewhat difficult Smoking Status: History Smoking Status Every Day Types: Cigarettes Smokeless Tobacco Never Patient does not meet criteria for Low Dose CT screening Sleep Apnea Risk Factors: LENNOX on CPAP Review of Systems Constitutional: Negative for chills, diaphoresis, fever, malaise/fatigue and weight loss. HENT: Negative. Eyes: Negative. Respiratory: Positive for cough and sputum production. Negative for hemoptysis, shortness of breathand wheezing. Cardiovascular: Negative for chest pain, palpitations, orthopnea, claudication, leg swelling and PND. Gastrointestinal: Negative. Genitourinary: Negative. Musculoskeletal: Negative. Skin: Negative. Neurological: Negative. Psychiatric/Behavioral: Negative. Past Medical History: Diagnosis Date GERD (gastroesophageal reflux disease) History of tobacco use LENNOX (obstructive sleep apnea) Past Surgical History: Procedure Laterality Date INNER EAR SURGERY PROC UNLISTED Family History Problem Relation Name Age of Onset Hypertension Mother Kathie Harmon Social History Socioeconomic History Marital status: Single Spouse name: Not on file Number of children: Not on file Years of education: Not on file Highest education level: Not on file Occupational History Not on file Tobacco Use Smoking status: Every Day Types: Cigarettes Passive exposure: Never Smokeless tobacco: Never Tobacco comments: Patient smoked cigarettes from 2011 to 2019 1 PPD on average. Currently vapes. Vaping Use Vaping status: Every Day Substances: Nicotine Devices: Disposable Substance and Sexual Activity Alcohol use: Yes Alcohol/week: 10.0 standard drinks of alcohol Types: 10 Standard drinks or equivalent per week Drug use: Not Currently Types: Marijuana Sexual activity: Yes Partners: Female control/protection: None Other Topics Concern Not on file Social History Narrative Not on file Social Drivers of Health Financial Resource Strain: Not on file Food Insecurity: Not on file Transportation Needs: Not on file Physical Activity: Not on file Stress: Not on file Social Connections: Not on file Intimate Partner Violence: Not on file Housing Stability: Not on file Immunization History Administered Date(s) Administered Dtap (Generic) 1995, 01/02/1996, 03/11/1996, 04/01/1997, 07/29/2000 Fluzone 6 Months+ Quad (0.5 mL Prefilled Syringe) 07/04/2023 Hepatitis A (Generic) 01/13/2008, 01/16/2009 Hepatitis B 1995, 1995, 06/04/1996 Hib (Generic) 1995, 01/02/1996, 03/11/1996, 12/10/1996 Influenza (Generic) 05/03/2010, 06/28/2012 MMR (MMRII) 08/30/1996, 07/29/2000 Meningococcal (Generic) 01/13/2008 Meningococcal (Menactra) 04/12/2014 PFIZER COVID-19 (ORIGINAL FORMULATION, PURPLE CAP) mRNA, LNP-S, PF, 30 MCG/0.3 ML DOSE 12/05/2020, 12/26/2020 Polio Opv (Generic) 1995, 01/02/1996, 04/01/1997, 07/29/2000 Tdap (Adacel) 07/04/2023 Tdap (Generic) 12/11/2005 Varicella (Varivax) 08/30/1996, 09/19/2006 Current Outpatient Medications Medication Sig Dispense Refill albuterol sulfate HFA 108 (90 Base) MCG/ACT inhaler INHALE 1 PUFF BY MOUTH FOUR TIMES DAILY NEEDED FOR SHORTNESS OF BREATH OR WHEEZING amoxicillin-clavulanate (AUGMENTIN) 875-125 MG tablet Take 1 tablet (875 mg total) by mouth every 12 (twelve) hours. benzonatate (TESSALON) 200 MG capsule Take 1 capsule (200 mg total) by mouth 3 (three) times daily as needed for Cough. 20 capsule 0 doxycycline monohydrate (ADOXA) 100 MG tablet predniSONE (DELTASONE) 20 MG tablet CPAP DEVICE, DME, Use nightly when sleeping. Send to [facility]. (Patient not taking: Reported on 07/07/2024) 1 Device 0 methylPREDNISolone, NAPOLEON, (MEDROL DOSEPAK) 4 MG tablet Take as directed 1 each 0 No current facility-administered medications for this visit. Current Outpatient Medications on File Prior to Visit Medication Sig albuterol sulfate HFA 108 (90 Base) MCG/ACT inhaler INHALE 1 PUFF BY MOUTH FOUR TIMES DAILY NEEDED FOR SHORTNESS OF BREATH OR WHEEZING amoxicillin-clavulanate (AUGMENTIN) 875-125 MG tablet Take 1 tablet (875 mg total) by mouth every 12 (twelve) hours. doxycycline monohydrate (ADOXA) 100 MG tablet predniSONE (DELTASONE) 20 MG tablet CPAP DEVICE, DME, Use nightly when sleeping. Send to [facility]. (Patient not taking: Reported on 07/07/2024) methylPREDNISolone, NAPOLEON, (MEDROL DOSEPAK) 4 MG tablet Take as directed No current facility-administered medications on file prior to visit. Review of patient's allergies indicates: Allergen Reactions Peanut-Containing Drug Products Nausea and Vomiting Throat swelling Objective: Filed Vitals: 07/07/24 1513 BP: 131/82 Pulse: 82 Resp: 18 Temp: 97.8 ??F (36.6 ??C) TempSrc: Core SpO2: 99% Weight: 135.4 kg (298 lb 6.4 oz) Height: 1.93 m (6' 4 ) Physical Exam Constitutional: General: He is not in acute distress. Appearance: He is not ill-appearing, toxic-appearing or diaphoretic. HENT: Head: Normocephalic and atraumatic. Right Ear: Tympanic membrane, ear canal and external ear normal. There is no impacted cerumen. Left Ear: Tympanic membrane, ear canal and external ear normal. There is no impacted cerumen. Nose: Nose normal. No congestion. Mouth/Throat: Mouth: Mucous membranes are moist. Pharynx: Oropharynx is clear. No oropharyngeal exudate. Eyes: General: No scleral icterus. Right eye: No discharge. Left eye: No discharge. Conjunctiva/sclera: Conjunctivae normal. Pupils: Pupils are equal, round, and reactive to light. Neck: Thyroid: No thyromegaly. Vascular: No carotid bruit or JVD. Trachea: No tracheal deviation. Cardiovascular: Rate and Rhythm: Normal rate and regular rhythm. Pulses: Normal pulses. Heart sounds: Normal heart sounds. No murmur heard. Pulmonary: Effort: Pulmonary effort is normal. No respiratory distress. Breath sounds: Normal breath sounds. No stridor. No wheezing or rales. Chest: Chest wall: No tenderness. Abdominal: General: Bowel sounds are normal. There is no distension. Palpations: Abdomen is soft. There is no mass. Tenderness: There is no abdominal tenderness. There is no right CVA tenderness, left CVA tenderness, guarding or rebound. Hernia: No hernia is present. Musculoskeletal: General: No swelling, tenderness, deformity or signs of injury. Normal range of motion. Cervical back: Normal range of motion and neck supple. No rigidity or tenderness. Right lower leg: No edema. Left lower leg: No edema. Lymphadenopathy: Cervical: No cervical adenopathy. Skin: Coloration: Skin is not jaundiced or pale. Findings: No bruising, erythema, lesion or rash. Neurological: Mental Status: He is alert and oriented to person, place, and time. Cranial Nerves: No cranial nerve deficit. Sensory: No sensory deficit. Motor: No weakness or abnormal muscle tone. Coordination: Coordination normal. Gait: Gait is intact. Gait normal. Deep Tendon Reflexes: Reflexes are normal and symmetric. Reflexes normal. Psychiatric: Mood and Affect: Mood and affect normal. Behavior: Behavior normal. Thought Content: Thought content normal. Cognition and Memory: Memory normal. Judgment: Judgment normal. Assessment & Plan: Seb was seen today for physical. Diagnoses and all orders for this visit: Annual physical exam -Reviewed with the patient BMI, blood pressure, diet, exercise, and encouraged healthy lifestyle choices. Screened for substance use, risk factors for STIs, diet and exercise habits, and symptoms of depression. Emphasized normal blood pressure of < 140/90 and lipid and diabetes screening for allmen > 35 or for men 20-34 with risk factors. Recommended US screening for AAA for all men 65-75 who have ever smoked. Recommended prostate screening. Colon screening starting at 45. Recommended preventive immunizations according to age. - URINALYSIS AUTO DIP - HEMOGLOBIN, GLYCOSYLATED; Future - TSH W/REFLEX; Future - LIPID PANEL; Future - COMPREHENSIVE METABOLIC PANEL; Future - CBC W/DIFF AUTOMATED; Future - COLLECTION VENOUS BLOOD VENIPUNCTURE General medical exam -Patient past medical, surgical, family history and social history updated. Allergies, immunizations and medications updated. Also did discuss healthy lifestyle including exercising, dietary changes and safe sexual practices as well as safe habits common to patient age group including wearing seat belt when transporting in a vehicle and limiting alcohol and avoiding smoking/second hand smoking. Patient will set up [employer]. Patient will fax over any remaining outside records that would be relevant to care provided. - URINALYSIS AUTO DIP - HEMOGLOBIN, GLYCOSYLATED; Future - TSH W/REFLEX; Future - LIPID PANEL; Future - COMPREHENSIVE METABOLIC PANEL; Future - CBC W/DIFF AUTOMATED; Future - COLLECTION VENOUS BLOOD VENIPUNCTURE Drug therapy - URINALYSIS AUTO DIP - HEMOGLOBIN, GLYCOSYLATED; Future - TSH W/REFLEX; Future - LIPID PANEL; Future - COMPREHENSIVE METABOLIC PANEL; Future - CBC W/DIFF AUTOMATED; Future - COLLECTION VENOUS BLOOD VENIPUNCTURE LENNOX (obstructive sleep apnea) -Currently not fully compliant with using CPAP machine. Encouraged to use CPAP machine as directed.Follow-up pulmonary. Weight loss encouraged. Class 2 severe obesity due to excess calories with serious comorbidity and body mass index (BMI) of36.0 to 36.9 in adult ([facility]) --Pt has elevated weight with BMI Body mass index is 36.32 kg/m??., and will need to work hard on reducing carbohydrates and total calories. -You may use the free smart phone apps such as Yub to help track calories and try to reduce by 15% every 4 weeks. -Patient will work on reducing total portion sizes to try to reduce the size of their stomach. -Exercising about 30 minutes every day with cardio work outs. -Avoid regular soda, juices and alcohol. -Recommended limiting GPS foods (Grains, Potatoes, Sugars) as much as possible. Eating food that itis not highly processed and that they can recognize. Eating when they are hungry and not by a time schedule. -Lets aim to have them loose about 1 pound per week and 5 pounds per month. Pneumonia of both lungs due to infectious organism, unspecified part of lung - Improving but not completely resolved. Complete antibiotics Augmentin, doxycycline and prednisonecourse. Repeat chest x-ray in 6 weeks to ensure complete resolution. -Add benzonatate (TESSALON) 200 MG capsule; Take 1 capsule (200 mg total) by mouth 3 (three) times daily as needed for Cough. - XR CHEST PA+LAT; Future Exercise-induced asthma (HHS/HCC) - Methacholine Challenge (25270); Future I personally spent a total of 55 minutes on the day of the encounter. This includes nnyg-pt-nepf and azw-xddu-ro-face time I provided on the day of the encounter & excludes time spent performing separately reportable services. DRAGON: This dictation was at least in part performed using [employer] and there may be some inherent flaws in this lab aide due to the nature of this program. MD Dominga YUEN MD Internal Medicine [facility] Medical [facility], [facility]. NATING MACHINE FEEDER documented in this encounter Plan of Treatment Upcoming Encounters Date Type Department Care Team (Late st Contact Info) Description 07/21/2024 7:00 AM LAMINATING MACHINE FEEDER Allied Health/Nurse Visit [facility] Medical [facility] Multispecialty Care - [address] [address] [address] [place] [address] Dominga Choudhury MD [address] [place] [address] [address] [place] [address] Scheduled Orders Name Type Priority Associated Diagnoses Orde r Schedule HEMOGLOBIN, GLYCOSYLATED Lab Routine Annual physical exam General medical exam Drug therapy Expected: 07/07/2024, Expires: 07/04/2025 TSH W/REFLEX Lab Routine Annual physical exam General medical exam Drug therapy Expected: 07/07/2024, Expires: 07/04/2025 LIPID PANEL Lab Routine Annual physical exam General medical exam Drug therapy Expected: 07/07/2024, Expires: 07/04/2025 COMPREHENSIVE METABOLIC PANEL Lab Routine Annual physical exam General medical exam Drug therapy Expected: 07/07/2024, Expires: 07/04/2025 CBC W/DIFF AUTOMATED Lab Routine Annual physical exam General medical exam Drug therapy Expected: 07/07/2024, Expires: 07/04/2025 XR CHEST PA+LAT Imaging Routine Pneumonia of both lungs due to infectious organism, unspecified part of lung Expected: 08/14/2024, Expires: 07/07/2025 Methacholine Challenge (40080) PFT Routine Exercise-induced asthma ([facility]) Expected: 07/07/2024, Expires: 07/07/2025 documented as of this encounter Procedures Procedure Name Priority Date/Time Associated Diagnosis Comments COLLECTION VENOUS BLOOD VENIPUNCTURE Routine 07/07/2024 3:46 PM LAMINATING MACHINE FEEDER Annual physical exam General medical exam Drug therapy URINALYSIS AUTO DIP Routine 07/07/2024 Annual physical exam General medical exam Drug therapy documented in this encounter Results * URINALYSIS AUTO DIP (07/07/2024) COLOR (U) YELLOW YELLOW MG-[address], [place] TRANSPARENCY CLEAR CLEAR MG-[address], [place] GLUCOSE (U) NEGATIVE NEGATIVE MG/DL MG-[address], [place] BILIRUBIN (U) NEGATIVE NEGATIVE MG-[address], [place] KETONES MG/DL (U) NEGATIVE NEGATIVE MG/DL MG-[address], [place] SPECIFIC GRAVITY (U) 1.025 1.001 - 1.035 MG-[address], [place] BLOOD (U) NEGATIVE NEGATIVE MG-[address], [place] U PH 7.0 5.0 - 9.0 MG-[address], [place] PROTEIN (U) NEGATIVE NEGATIVE mg/dL MG-[address], [place] UROBILINOGEN Normal 0.2 - 1.0 EU/dL = mg/dL MG-[address], [place] NITRITES NEGATIVE NEGATIVE MG/DL MG-[address], [place] LEUKOCYTES (U) NEGATIVE NEGATIVE MG-[address], [place] URINE SPECIMEN OBTAINED BY CLEAN CATCH PROCEDURE / Unknown 07/07/2024 Dominga Choudhury MD URINE ORDERABLES Final Result MG-[address], [place] [address] [facility] [address] [place] [address], documented in this encounter Visit Diagnoses Diagnosis Annual physical exam- Primary Routine general medical examination at a health care facility General medical exam Unspecified general medical examination Drug therapy Encounter for long-term (current) use of other medications LENNOX (obstructive sleep apnea) Obstructive sleep apnea (adult) (pediatric) Class 2 severe obesity due to excess calories with serious comorbidity and body mass index (BMI) of 36.0 to 36.9 in adult ([facility]) Pneumonia of both lungs due to infectious organism, unspecified part of lung Exercise-induced asthma ([facility]) Exercise induced bronchospasm documented in this encounter Additional Health Concerns Assessment Noted Time PHQ-9 Depression Total Score: 10 024 11:38 AM LAMINATING MACHINE FEEDER documented as of this encounter Care Teams Type Casting Machine Operator Relationship Specialty Start Date End Date Dominga Choudhury MD [address] [facility] [address] [place] [address] PCP - General INTERNAL MEDICINE 04/17/23 documented as of this encounter
--- OUTSIDE RECORDS SUMMARY | 2024-07-14 12:55 | XMS_ITS | Patient Health Summary ---
Author Organization [facility] Address [address] [facility] [place] [address] Care Team Providers Care Machine Sizer Name Role Phone Arthur Franco MD Primary Care Provider [phone] Note from [facility],non-owned Affiliates and Associated Physician Practices is amultiple site organization consisting of ambulatory clinics and hospital sitesin [place], [place], [place] and [place]. This disclosure is being madepursuant to the Care Everywhere program and may not contain all information available regarding this patient. Last updated 18.[facility] Social History Tobacco Use Types Packs/Day Years Used Date Smoking Tobacco: Never Assessed Sex and Gender Information Value Date Recorded Sex Assigned at Not on file Gender Identity Not on file Sexual Orientation Not on file Procedures * GROSS EXAM PATHOLOGY(Performed 04/04/1998) Results * GROSS EXAM PATHOLOGY (04/04/1998 8:10 AM CDT) Result CASE NUMBER [id number] [facility] PATH REPORT Comment: ORDERING PHYSICIAN [...] GROSS DIAGNOSIS ? GROSS DIAGNOSIS ?? ADENOIDS. Scraper Loader Operator ? Elida Hall PATHOLOGIST ?Varghese Giles M.D. ELECTRONICALLY LENINVARGHESE KINSEY MISCELLANEOUS SAMPLES / Unknown 04/04/1998 8:10 AM CDT 04/05/1998 2:12 PM CDT Historical Provider LAB - PATHOLOGY/C YTOLOGY ORDERABLES [facility] PATH REPORT Care Teams Machine Sizer Relationship Specialty Start Date End Date Arthur Franco MD [address] [place] [address] PCP - General 05/02/20
--- OUTSIDE RECORDS SUMMARY | 2024-07-14 12:55 | XMS_ITS | Clinical Summary ---
Author Organization [facility] [address] Address [address] [place] [id number] Care Team Providers Care School Bus Attendant Name Role Phone No, Physician Primary Care Provider [phone] Allergies No known active allergies Medications albuterol [...] on file Legal Sex Male 6:36 PM SPRAY PAINTER HELPER Gender Identity Not on file Sexual Orientation Not on file Obstetrics History Last Filed Vital Signs Vital Sign Reading Time Taken Comments Blood Pressure 128/70 05/14/2021 12:31 PM SPRAY PAINTER HELPER Pulse 68 05/14/2021 12:31 PM SPRAY PAINTER HELPER Temperature 36.8 ??C (98.3 ??F) 05/14/2021 12:[address] Respiratory Rate 22 05/14/2021 12:31 PM SPRAY PAINTER HELPER Oxygen Saturation 98% 05/14/2021 12:31 PM SPRAY PAINTER HELPER Inhaled Oxygen Concentration - - Weight 118.2 kg (260 lb 8 oz) 05/14/2021 12:31 P M SPRAY PAINTER HELPER Height 190.5 cm (6' 3 ) 05/14/2021 12:31 PM SPRAY PAINTER HELPER Body Mass Index 32.56 05/14/2021 12:31 PM SPRAY PAINTER HELPER Plan of Treatment Not on file Insurance Care Teams School Bus Attendant Relationship Specialty Start Date End Date No, Physician PCP - General 05/14/21
--- OUTSIDE RECORDS SUMMARY | 2024-07-14 12:55 | XMS_ITS | Encounter Summary ---
Author Organization [facility] Address [address] [place] [address]. [place], [place] [address] [place] [address] Care Team Providers Care Lease Operator Name Role Phone Dominga Choudhury MD Primary Care Provider [phone] Reason for Visit * Reason Onset Date Comments Follow Up Call 07/14/2024 Encounter Details Date Type Department Care Team (Late st Contact Info) Description 07/14/2024 Telephone [facility] Multispecialty Care - [place] [address] [address] [place] [address] Dominga Choudhury MD [address] [place] [address] [address] [place] [address] Follow Up Call Social History [...] advised that he had roxane diagnosed by [facility] on July 03, 2024 [...] relayed to the patient and voiced understanding. PAIR documented in this encounter Plan of Treatment Upcoming Encounters Date Type Department Care Team (Late st Contact Info) Description 07/21/2024 7:00 AM AU PAIR Allied Health/Nurse Visit [facility] Multispecialty Care [place] [address] [address] [place] [address] Dominga Choudhury MD [address] [place] [address] documented as of this encounter Visit Diagnoses Not on filedocumented in this encounter Additional Health Concerns Assessment Noted Time PHQ-9 Depression Total Score: 10 024 11:38 AM AU PAIR documented as of this encounter Care Teams Lease Operator Relationship Specialty Start Date End Date Dominga Choudhury MD [address] [place] [address] PCP - General INTERNAL MEDICINE 04/17/23 documented as of this encounter
--- OUTSIDE RECORDS SUMMARY | 2024-07-14 12:55 | XMS_ITS | Referral Summary ---
Author Organization [facility] Address [address] [place] [address] Care Team Providers Care Extraction Machine Operator Name Role Phone Arthur Franco MD Primary Care Provider [phone] Source Comments [facility],non-[place] [facility] Affiliates and Associated Physician Practices is amultiple site organization consisting of ambulatory clinics and hospital sitesin [place], [place], [place] and [place]. This disclosure is being madepursuant to the Care Everywhere program and may not contain all information available regarding this patient. Last updated 18.[facility] Social History Tobacco Use Types Packs/Day Years Used Date Smoking Tobacco: Never Assessed Sex and Gender Information Value Date Recorded Sex Assigned at Not on file Gender Identity Not on file Sexual Orientation Not on file Plan of Treatment Not on file Care Teams Extraction Machine Operator Relationship Specialty Start Date End Date Arthur Franco MD [address] [place] [address] [facility] - General 05/02/20
--- OUTSIDE RECORDS SUMMARY | 2024-07-14 12:55 | XMS_ITS | Clinical Summary ---
Author Organization [facility] Address [address] [facility] [place] [address] Care Team Providers Care Siene Maker Name Role Phone Arthur Franco MD Primary Care Provider [phone] Source Comments [facility],non-owned Affiliates and Associated Physician Practices is amultiple site organization consisting of ambulatory clinics and hospital sitesin [place], [place], [place] and [place]. This disclosure is being madepursuant to the Care Everywhere program and may not contain all information available regarding this patient. Last updated 18.[facility] Social History Tobacco Use Types Packs/Day Years [...] age to complete this topic Care Teams Siene Maker Relationship Specialty Start Date End Date Arthur Franco MD [address] [place] [address] PCP - General 05/02/20
--- OUTSIDE RECORDS SUMMARY | 2024-07-14 12:55 | XMS_ITS | Clinical Summary ---
Author Organization [facility] Address [address] [place] [address]. [place], [place] [address] [place] [address] Care Team Providers Care Business Services Vice President Name Role Phone Dominga Choudhury MD Primary Care Provider Allergies Active Allergy Reactions Criticality Noted Date Comments Peanut-Containing Drug Products Nausea and Vomiting 10/23/2023 Throat swelling Medications CPAP DEVICE, DME,Indications :LENNOX (obstructive sleep apnea) Use nightly when sleeping. Send to [employer] Device 4 Active Additional Information Patient [...] Type Department Care Team Description 07/14/2024 Telephone [facility] Medical [facility] Care - [place] [address] [facility] [address] [place] [address] Dominga Choudhury MD Follow Up Call 07/07/2024 3:20 PM GAS STATION ATTENDANT [facility] [place] [address] [facility] [address] [place] [address] Dominga Choudhury MD Physical (Pt has pneumonia [...] Comments Blood Pressure 131/82 07/07/2024 3:13 PM GAS STATION ATTENDANT Pulse 82 07/07/2024 3:13 PM GAS STATION ATTENDANT Temperature 36.6 ??C (97.8 ??F) 07/07/2024 3:13 PM CS T Respiratory Rate 18 07/07/2024 3:13 PM GAS STATION ATTENDANT Oxygen Saturation 99% 07/07/2024 3:13 PM GAS STATION ATTENDANT Inhaled Oxygen Concentration - - Weight 135.4 kg (298 lb 6.4 oz) 07/07/2024 3:13 PM GAS STATION ATTENDANT Height 193 cm (6' 4 ) 07/07/2024 3:13 PM GAS STATION ATTENDANT Body Mass Index 36.32 07/07/2024 3:13 PM GAS STATION ATTENDANT Plan of Treatment Upcoming Encounters Date Type Department Care Team (Late st Contact Info) Description 07/21/2024 7:00 AM GAS STATION ATTENDANT Allied Health/Nurse Visit [facility] Medical Group Multispecialty Care [address] [place] [address] Dominga Choudhury MD [address] [facility] [address] [place] [address] Health Maintenance Due Date Last Done Comments Pneumococcal Vaccine: Pediatrics (0 to 5 Years) and At-Risk Patients (6 to 64 Years) (1 of 2 - PCV) 08/30/2001 COVID-19 Vaccine (3 - 2023- season) 2024 12/26/2020, 12/05/2020 Influenza Adult (#1) 2024 07/04/2023, 06/28/2012, 05/03/2010 PHQ-2 (Physician [place]) 06/16/2024 07/04/2023 Annual Physical 07/07/2025 07/07/2024, 07/04/2023 [...] VENOUS BLOOD VENIPUNCTURE Routine 07/07/2024 3:46 PM GAS STATION ATTENDANT Annual physical exam General medical exam Drug [...] HEPATITIS C ANTIBODY Routine 07/04/2023 11:48 AM GAS STATION ATTENDANT Annual physical exam General medical exam Encounter for hepatitis C screening test for low risk patient from Last 3 Months or Most Recently Relevant to Health Maintenance Results * URINALYSIS AUTO DIP (07/07/2024) Pathologist [facility] COLOR (U) YELLOW YELLOW MG[address], [place] TRANSPARENCY CLEAR CLEAR MG[address], [place] GLUCOSE (U) NEGATIVE NEGATIVE MG/DL MG-[address], [place] BILIRUBIN (U) NEGATIVE NEGATIVE MG-[address], [place] KETONES MG/DL (U) NEGATIVE NEGATIVE MG/DL MG-[address], [place] SPECIFIC GRAVITY (U) 1.025 1.001 - 1.035 MG[address], [place] BLOOD (U) NEGATIVE NEGATIVE MG-[address], [place] U PH 7.0 5.0 - 9.0 MG[address], [place] PROTEIN (U) NEGATIVE NEGATIVE mg/dL MG-[address], [place] UROBILINOGEN Normal 0.2 - 1.0 EU/dL = mg/dL MG-[address], [place] NITRITES NEGATIVE NEGATIVE MG/DL MG-[address], [place] LEUKOCYTES (U) NEGATIVE NEGATIVE MG-[address], [place] URINE SPECIMEN OBTAINED BY CLEAN CATCH PROCEDURE / Unknown 07/07/2024 us Dominga Choudhury MD URINE ORDERABLES Final Result [address], [place] [address] [place] [address], * OUTSIDE LAB COVID-19 (07/03/2024) Only the most recent of2 resultswithin the time period is included. CORONAVIRUS SARS COV 2 PCR (RESP) NOT DETECTED NOT DETECTED HS ONBASE 07/03/2024 Result [facility] Scanned SCANNING Final Resu lt Performing Organization Address [facility] Co de Phone Number [facility] ONBASE * OUTSIDE LAB (SCAN ORDER) (07/03/2024) Only the most recent of6 resultswithin the time period is included. 07/03/2024 [facility] Group Scanned SCANNING Final Resu lt * IMAGE GENERIC (07/03/2024) Anatomical Region Laterality Modality Other 07/03/2024 Result [facility] Scanned SCANNING Final Resu lt * HEPATITIS C ANTIBODY (07/04/2023 11:48 AM GAS STATION ATTENDANT) Pathologist [facility] HEPATITIS C AB NON-REACTI VE NON-REACT GILL 07/04/2023 10:00 PM GAS STATION ATTENDANT [facility] Comment: ANTIBODIES TO HCV NOT DETECTED. DOES NOT EXCLUDE THE POSSIBILITY OF EXPOSURE TO HCV. 07/04/2023 11:4 8 AM GAS STATION ATTENDANT Dominga Choudhury MD LABORATORY Final Result Performing Organization Address [facility] Co de Phone Number [facility] [address] [place] [address], [place] [phone] from Last 3 Months or Most Recently Relevant to Health Maintenance [facility] Care Teams Business Services Vice President Relationship Specialty Start Date End Date Dominga Choudhury MD [facility] [address] PCP - General INTERNAL MEDICINE 04/17/23
--- OUTSIDE RECORDS SUMMARY | 2024-07-14 12:55 | XMS_ITS | Encounter Summary ---
Author Organization [facility] Address [address] [place] [address]. [place], [place] [address] [place] [address] Care Team Providers Care First Coat Operator Name Role Phone Dominga Choudhury MD Primary Care Provider Encounter Details Date Type Department Care Team (Late st Contact Info) Description 09/17/2023 [employer] Message [email or web address] Business Office [address] [place] [address] [employer], [facility] Provider Action Needed Social History Tobacco Use [...] st Contact Info) Description 07/21/2024 7:00 AM SOLICITING FREIGHT AGENT Allied Health/Nurse Visit [facility] Multispecialty Care - [place] [address] [address] [place], [place] [address] Dominga Choudhury MD [address] [place] [address] [address] [place] [address] documented as of this encounter Visit Diagnoses Not on filedocumented in this encounter Additional Health Concerns Infection Onset Date Last Indicated Resolved Time COVID-19 Rule Out 01/21/2024 01/21/2024 01/21/2024 5:10 PM CDT Assessment Noted Time PHQ-9 Depression Total Score: 10 024 11:38 AM SOLICITING FREIGHT AGENT documented as of this encounter Care Teams First Coat Operator Relationship Specialty Start Date End Date Dominga Choudhury MD [address] [address] PCP - General INTERNAL MEDICINE 04/17/23 documented as of this encounter
--- OUTSIDE RECORDS SUMMARY | 2024-07-14 12:55 | XMS_ITS | Encounter Summary ---
Author Organization [facility] Address [address] [place] [address]. [place] [address] [place] [address] Care Team Providers Care Campus Security Officer Name Role Phone Dominga Choudhury MD Primary Care Provider [phone] Encounter Details Date Type Department Care Team (Late st Contact Info) Description 10/24/2023 MyChart Message [facility] [place] [address] [facility] [address] [place] [address] Anahi Tenorio, SHOPPER'S AIDE [address] [place] [address] [employer] (U) Social History Tobacco Use Types [...] st Contact Info) Description 07/21/2024 7:00 AM LINK TRAINER MAINTENANCE MAN Allied [facility] [place] [address] [place] [address] Dominga Choudhury MD [address] [address] documented as of this encounter Visit Diagnoses Not on filedocumented in this encounter Additional Health Concerns Infection Onset Date Last Indicated Resolved Time COVID-19 Rule Out 01/21/2024 01/21/2024 01/21/2024 5:10 PM CDT Assessment Noted Time PHQ-9 Depression Total Score: 10 024 11:38 AM LINK TRAINER MAINTENANCE MAN documented as of this encounter Care Teams Campus Security Officer Relationship Specialty Start Date End Date Dominga Choudhury MD [address] [address] PCP - General INTERNAL MEDICINE 04/17/23 documented as of this encounter
--- OUTSIDE RECORDS SUMMARY | 2024-07-14 12:55 | XMS_ITS | Referral Summary ---
Author Organization [facility] [address] [place] Address [address] [place] [id number] Care Team Providers Care Program Professional Name Role Phone No, Physician Primary Care Provider [phone] Allergies No known active allergies Medications albuterol [...] on file Legal Sex Male 6:36 PM MOVIE CRITIC Gender Identity Not on file Sexual Orientation Not on file Last Filed Vital Signs Vital Sign Reading Time Taken Comments Blood Pressure 128/70 05/14/2021 12:31 PM MOVIE CRITIC Pulse 68 05/14/2021 12:31 PM MOVIE CRITIC Temperature 36.8 ??C (98.3 ??F) 05/14/2021 12:[address] Respiratory Rate 22 05/14/2021 12:31 PM MOVIE CRITIC Oxygen Saturation 98% 05/14/2021 12:31 PM MOVIE CRITIC Inhaled Oxygen Concentration - - Weight 118.2 kg (260 lb 8 oz) 05/14/2021 12:31 P M MOVIE CRITIC Height 190.5 cm (6' 3 ) 05/14/2021 12:31 PM MOVIE CRITIC Body Mass Index 32.56 05/14/2021 12:31 PM MOVIE CRITIC Plan of Treatment Not on file Insurance Care Teams Program Professional Relationship Specialty Start Date End Date No, Physician PCP - General 05/14/21
[2024-07-14 13:02] VITALS: TEMP 37.3
== END 2024-07-14 13:02 | disposition home or self-care (01) ==
PROVIDERS: Emergency Provider Emergency Medicine; PCP Internal Medicine
DX: R04.2 Hemoptysis (principal); Z87.01 Personal history of pneumonia (recurrent); F17.200 Nicotine dependence, unspecified, uncomplicated
CPT/HCPCS: 36415; 71275; 80053; 85025; 85610; 85730; 93005; 94664; 99284; Q9967

== ENCOUNTER 2024-08-15 12:26 | Emergency (ER) | payer OTHER, SELFPAY ==
[2024-08-15 12:37] VITALS: BP 125/85; PULSE 107; RESP 16; TEMP 36.3; O2SAT 99
--- NOTE | 2024-08-15 12:42 | ED.EAR ---
HPI - Ear Problem General Chief complaint: Upper Respiratory Infection Stated complaint: Sinus Pressure Time Seen by Provider: 08/15/24 12:40 Source: patient Mode of arrival: ambulatory Limitations: no limitations History of Present Illness HPI Narrative: Melchor is a 28-year-old male patient presenting to the clinic today with complaints of left ear pain/pressure. He reports this started over the last week. No known fevers or chills. Recently has had pneumonia and finished treatment approximately 6 weeks ago. Related Data Allergies Allergy/AdvReac Type Severity Reaction Status Date / Time Peanut and Related Legumes Allergy Severe Anaphylaxis Verified 08/15/24 12:37 nut - unspecified Allergy Swelling Verified 02/08/24 14:03 of Lip/Tongue/Throat Review of Systems Review of Systems: Pertinent positives per HPI. Patient denies any fever, chills, rash, headache, visual changes, dizziness, cough, shortness of breath, chest pain, palpitations, nausea, vomiting, diarrhea, constipation, abdominal pain, or any urinary issues. ADALGISA Past Medical History Medical History Patient denies significant medical history Social History Social History Smoking status: Current every day smoker Comments At the time of my signature, I reviewed and agree with the nursing past medical, surgical, social, and family history. There is no relevant family history pertinent to the patient complaint. Exam Narrative: General: Well-developed, well nourished, in no apparent distress Head: Normocephalic, atraumatic Eyes: Pupils equally round and reactive to light bilaterally, EOM intact, sclera and conjunctive clear, no discharge, lids normal Ears: Right TMs intact and clear, left TM intact, bulging, red, ear canals clear, no drainage, grossly hearing normal. Nose: Nares patent, clear nasal discharge, no inflammation, no sinus tenderness. Mouth: Oral pharynx without lesions or masses, good dentition, MMM. Neck: Supple, trachea midline, no enlargement of anterior or posterior cervical nodes, no thyroid masses or goiter palpable. Cardio: Regular rate and rhythm, s1 and s2 normal, no murmur appreciated. Resp: Clear to auscultation bilaterally, no rhonchi, rales, wheezing or rubs Course Course Emergency Course: Portions of this record may have been created with voice recognition software. Level of Care: Express Care Visit Vital Signs Vital signs: Vital Signs Temperature 36.3 C L 08/15/24 12:37 Pulse Rate 107 H 08/15/24 12:37 Respiratory Rate 16 08/15/24 12:37 Blood Pressure 125/85 08/15/24 12:37 Pulse Oximetry 99 08/15/24 12:37 Temperature 36.3 C L 08/15/24 12:37 Pulse Rate 107 H 08/15/24 12:37 Respiratory Rate 16 08/15/24 12:37 Blood Pressure 125/85 08/15/24 12:37 Pulse Oximetry 99 08/15/24 12:37 Vital signs reviewed Medical Decision Making MDM Narrative Medical decision making narrative: At the time of visit patient is resting comfortably on the exam table. Patient appears to be nontoxic. Plan: I suspect patient has left otitis media. Prescription for Augmentin was sent to the pharmacy. Supportive measures were discussed with the patient and they voiced understanding discharge instructions and agrees to treatment plan. Return precautions reviewed Differential Diagnosis Differential Diagnosis: Otitis media, otitis externa, eustachian tube dysfunction, cerumen impaction, upper respiratory infection, serous otitis Vital Signs Vital Signs: Vital Signs Temperature 36.3 C L 08/15/24 12:37 Pulse Rate 107 H 08/15/24 12:37 Respiratory Rate 16 08/15/24 12:37 Blood Pressure 125/85 08/15/24 12:37 Pulse Oximetry 99 08/15/24 12:37 Temperature 36.3 C L 08/15/24 12:37 Pulse Rate 107 H 08/15/24 12:37 Respiratory Rate 16 08/15/24 12:37 Blood Pressure 125/85 08/15/24 12:37 Pulse Oximetry 99 08/15/24 12:37 Discharge Plan Discharge Clinical Impression: Acute left otitis media Patient Disposition: Home, Self-Care Condition: Stable Instructions: Antibiotic Form, Ear Infection (ED) Additional Instructions: Take any prescribed medications only as directed-Augmentin Tylenol/motrin as needed for pain May use heating pad to alleviate pain If you get recurrent ear infections it may be warranted to follow up with ENT. Follow up with your PCP in 3-5 days if symptoms persist. Patient Language: Qatari Prescriptions: New amoxicillin-pot clavulanate 875-125 mg tablet 1 tablet PO Q12H 10 Days Qty: 20 0RF No Action prednisone 50 mg tablet 50 mg PO DAILY Qty: 5 0RF Rx Instructions: take in am with food albuterol sulfate 90 mcg/actuation HFA aerosol inhaler 2 puff inhalation QID PRN (Reason: shortness of breath or wheezing) Qty: 8.5 0RF albuterol sulfate [Ventolin HFA] 90 mcg/actuation HFA aerosol inhaler 1 inh inhalation QID PRN (Reason: shortness of breath or wheezing) Qty: 6.7 0RF acetaminophen-codeine 300-30 mg tablet 1 tablet PO Q12H PRN (Reason: cough) Qty: 10 0RF amoxicillin-pot clavulanate 875-125 mg tablet 1 tablet PO Q12H Qty: 20 0RF prednisone 20 mg tablet 20 mg PO BID Qty: 10 0RF doxycycline monohydrate 100 mg tablet 100 mg PO BID Qty: 14 0RF albuterol sulfate [Ventolin HFA] 90 mcg/actuation HFA aerosol inhaler 1 puff inhalation QID PRN (Reason: shortness of breath or wheezing) Qty: 8.5 0RF Follow-up/Referrals: PHYSICIAN,PERSONNEL ASSISTANT [Primary Care Provider] - Time of Disposition: 12:43 Quality NIHSS Nursing Documentation ED NIHSS nursing documentation: reviewed/agree
== END 2024-08-15 12:51 | disposition home or self-care (01) ==
PROVIDERS: Emergency Provider Nurse Practitioner Family
DX: H66.92 Otitis media, unspecified, left ear (principal); F17.200 Nicotine dependence, unspecified, uncomplicated
CPT/HCPCS: 99213; G0463